=== PATIENT | male | born 1940 | race Caucasian/White ===

== ENCOUNTER 2018-08-24 06:40 | Inpatient (IN) | payer OTHER ==
[~2018-08-24] VITALS: Ht 188 cm; Wt 141.9 kg
[2018-08-24 07:08] LABS: BASOPHILS ABSOLUTE AUTO 0.04 K/mm3 (0.00-0.23); BASOPHILS PERCENT AUTO 0 % (0-2); EOSINOPHILS PERCENT AUTO 0 % (0-6); Hematocrit 35.2 % (37.0-53.0); Hemoglobin 11.1 g/dL (13.5-17.5); IMMATURE GRAN ABSOLUTE AUTO 0.07 K/mm3 (0.00-0.10); IMMATURE GRAN PERCENT AUTO 1 % (0-1); LYMPHOCYTES ABSOLUTE AUTO 1.15 K/mm3 (0.84-5.20); LYMPHOCYTES PERCENT AUTO 9 % (21-46); MONOCYTES PERCENT AUTO 11 % (4-13); Mean Corpuscular HGB 30.7 pg (26.0-34.0); Mean Corpuscular HGB Conc 31.5 g/dL (31.5-36.5); Mean Corpuscular Volume 97 fL (80-100); Mean Platelet Volume 10.2 fL (9.1-12.4); NEUTROPHILS ABSOLUTE AUTO 10.12 K/mm3 (1.96-9.15); NEUTROPHILS PERCENT AUTO 79 % (41-73); Platelet Count 266 K/mm3 (150-400); RDW Coefficient Variation 13.8 % (11.7-14.2); RDW Standard Deviation 50.4 fL (35.1-46.3); Red Blood Cell Count 3.62 M/mm3 (4.30-5.90); White Blood Cell Count 12.78 K/mm3 (4.00-11.30)
[2018-08-24 07:19] LABS: Bun/Creatinine Ratio 21.5 (12.0-20.0); Calcium, Blood 8.5 mg/dL (8.5-10.1); Creatinine, Blood 1.3 mg/dL (0.60-1.20); Potassium, Blood 4.1 mmol/L (3.5-5.5); Troponin I 0.016 ng/mL (0.000-0.040)
[2018-08-24] MEDS ORDERED: Glipizide-Metf1 EAC2 PO (09:01)
[2018-08-24] MEDS ORDERED: ATOR10 PO (09:01)
[2018-08-24] MEDS ORDERED: LEVSOD100 PO (09:01)
[2018-08-24] MEDS ORDERED: FURO40 PO (09:01)
[2018-08-24] MEDS ORDERED: LOSA50 PO (09:01)
[2018-08-24 09:28] LABS: Bilirubin, Urine Neg (Neg); Blood, Urine 4+ (Neg); Glucose Qualitative, Urine Neg (Neg); Ketones, Urine 2+ (Neg); Leukocyte Esterase, Urine 2+ (Neg); Nitrite, Urine Neg (Neg); Protein, Urine 3+ (Neg); Specific Gravity, Urine 1.015 (1.003-1.022); Urobilinogen, Urine NORM (Normal)
[2018-08-24 09:46] LABS: Appearance, Urine Hazy (Clear); Color, Urine Yellow (P-Yellow)
[2018-08-24 09:50] LABS: Bacteria Many /hpf; Squamous Epithelial Cells Few /hpf (Few)
[2018-08-24 13:23] LABS: Albumin, Blood 2.4 g/dL (3.4-5.0); Albumin/Globulin Ratio 0.5 (0.8-1.8); Bilirubin, Total 0.7 mg/dL (0.1-1.0); Calcium, Blood 8.1 mg/dL (8.5-10.1); Creatinine, Blood 1.26 mg/dL (0.60-1.20); Globulin, Blood 4.5 g/dL (2.2-4.0); Potassium, Blood 4.2 mmol/L (3.5-5.5); Total Protein, Blood 6.9 g/dL (6.4-8.2)
[2018-08-24] MEDS ORDERED: METF500C PO (18:18)
[2018-08-25 05:09] LABS: BASOPHILS ABSOLUTE AUTO 0.03 K/mm3 (0.00-0.23); BASOPHILS PERCENT AUTO 0 % (0-2); EOSINOPHILS ABSOLUTE AUTO 0.03 K/mm3 (0.00-0.68); EOSINOPHILS PERCENT AUTO 0 % (0-6); Hematocrit 32.2 % (37.0-53.0); Hemoglobin 10.2 g/dL (13.5-17.5); IMMATURE GRAN ABSOLUTE AUTO 0.06 K/mm3 (0.00-0.10); IMMATURE GRAN PERCENT AUTO 1 % (0-1); LYMPHOCYTES ABSOLUTE AUTO 1.32 K/mm3 (0.84-5.20); LYMPHOCYTES PERCENT AUTO 11 % (21-46); MONOCYTES ABSOLUTE AUTO 1.25 K/mm3 (0.16-1.47); MONOCYTES PERCENT AUTO 10 % (4-13); Mean Corpuscular HGB Conc 31.7 g/dL (31.5-36.5); Mean Corpuscular Volume 95 fL (80-100); Mean Platelet Volume 10.2 fL (9.1-12.4); NEUTROPHILS ABSOLUTE AUTO 9.92 K/mm3 (1.96-9.15); NEUTROPHILS PERCENT AUTO 79 % (41-73); Platelet Count 258 K/mm3 (150-400); RDW Coefficient Variation 13.9 % (11.7-14.2); RDW Standard Deviation 48.5 fL (35.1-46.3); White Blood Cell Count 12.61 K/mm3 (4.00-11.30)
[2018-08-25 05:37] LABS: Magnesium, Blood 1.7 mg/dL (1.6-2.4)
[2018-08-25 05:39] LABS: Albumin, Blood 2.3 g/dL (3.4-5.0); Albumin/Globulin Ratio 0.5 (0.8-1.8); Bilirubin, Total 0.8 mg/dL (0.1-1.0); Calcium, Blood 8.1 mg/dL (8.5-10.1); Creatinine, Blood 1.3 mg/dL (0.60-1.20); Globulin, Blood 4.9 g/dL (2.2-4.0); Phosphorus, Blood 2.1 mg/dL (2.5-4.9); Potassium, Blood 3.9 mmol/L (3.5-5.5); Total Protein, Blood 7.2 g/dL (6.4-8.2)
[2018-08-26 04:57] LABS: Hematocrit 32.2 % (37.0-53.0); Hemoglobin 10.3 g/dL (13.5-17.5); Mean Corpuscular HGB 30.6 pg (26.0-34.0); Mean Corpuscular Volume 96 fL (80-100); Platelet Count 236 K/mm3 (150-400); RDW Coefficient Variation 13.8 % (11.7-14.2); RDW Standard Deviation 48.4 fL (35.1-46.3); Red Blood Cell Count 3.37 M/mm3 (4.30-5.90); White Blood Cell Count 8.71 K/mm3 (4.00-11.30)
[2018-08-26 05:24] LABS: Albumin, Blood 2.2 g/dL (3.4-5.0); Anion Gap 7 mmol/L (6-16); Blood Urea Nitrogen 27 mg/dL (8-24); CO2, Blood 28 mmol/L (21-32); Calcium, Blood 8.1 mg/dL (8.5-10.1); Chloride, Blood 102 mmol/L (98-108); Creatinine, Blood 1.23 mg/dL (0.60-1.20); Glomerular Filtration Rate >60 (60-); Glucose, Blood 117 mg/dL (70-99); Phosphorus, Blood 2.8 mg/dL (2.5-4.9); Potassium, Blood 3.9 mmol/L (3.5-5.5); Sodium, Blood 137 mmol/L (136-145)
[2018-08-27 05:24] LABS: Hematocrit 33.1 % (37.0-53.0); Hemoglobin 10.3 g/dL (13.5-17.5); Mean Corpuscular HGB 30.4 pg (26.0-34.0); Mean Corpuscular HGB Conc 31.1 g/dL (31.5-36.5); Mean Corpuscular Volume 98 fL (80-100); Mean Platelet Volume 10.1 fL (9.1-12.4); Platelet Count 248 K/mm3 (150-400); RDW Coefficient Variation 13.7 % (11.7-14.2); RDW Standard Deviation 49.2 fL (35.1-46.3); Red Blood Cell Count 3.39 M/mm3 (4.30-5.90); White Blood Cell Count 9.27 K/mm3 (4.00-11.30)
[2018-08-27 05:44] LABS: Albumin, Blood 2.1 g/dL (3.4-5.0); Anion Gap 6 mmol/L (6-16); Blood Urea Nitrogen 26 mg/dL (8-24); Bun/Creatinine Ratio 22.6 (12.0-20.0); CO2, Blood 30 mmol/L (21-32); Chloride, Blood 101 mmol/L (98-108); Creatinine, Blood 1.15 mg/dL (0.60-1.20); Glomerular Filtration Rate >60 (60-); Glucose, Blood 119 mg/dL (70-99); Sodium, Blood 137 mmol/L (136-145)
[2018-08-28 04:51] LABS: Hematocrit 32.4 % (37.0-53.0); Hemoglobin 10.1 g/dL (13.5-17.5); Mean Corpuscular HGB 30.7 pg (26.0-34.0); Mean Corpuscular HGB Conc 31.2 g/dL (31.5-36.5); Mean Corpuscular Volume 99 fL (80-100); Mean Platelet Volume 10.1 fL (9.1-12.4); Platelet Count 247 K/mm3 (150-400); RDW Coefficient Variation 13.6 % (11.7-14.2); RDW Standard Deviation 49.3 fL (35.1-46.3); Red Blood Cell Count 3.29 M/mm3 (4.30-5.90)
[2018-08-28 05:07] LABS: Albumin, Blood 2.2 g/dL (3.4-5.0); Anion Gap 7 mmol/L (6-16); Blood Urea Nitrogen 22 mg/dL (8-24); Bun/Creatinine Ratio 17.3 (12.0-20.0); CO2, Blood 29 mmol/L (21-32); Calcium, Blood 8.2 mg/dL (8.5-10.1); Chloride, Blood 101 mmol/L (98-108); Creatinine, Blood 1.27 mg/dL (0.60-1.20); Glomerular Filtration Rate 58 (60-); Glucose, Blood 156 mg/dL (70-99); Sodium, Blood 137 mmol/L (136-145)
[2018-08-28] MEDS ORDERED: Acetaminophen325 M1 PO (14:57)
[2018-08-28] MEDS ORDERED: LEVO750 PO (14:58)
[2018-08-28] MEDS ORDERED: NYSTATIN1 EAC1 TOP (14:58)
[2018-08-28] MEDS ORDERED: ASPI81CH PO (14:59)
[2018-08-28] MEDS ORDERED: SACC250C PO (14:59)
[2018-08-28] MEDS ORDERED: K-TAB ER20 MEQ PO (15:00)
== END 2018-08-28 16:14 | disposition home health service (06) | DRG 689 ==
LOC: ER 06:40 → MEDS 10:31
PROVIDERS: Emergency Medicine; Hospitalist; Internal Medicine
DX: N30.90 Cystitis, unspecified without hematuria (principal); G92 Toxic encephalopathy; Z68.41 Body mass index [BMI] 40.0-44.9, adult; E03.9 Hypothyroidism, unspecified; E66.01 Morbid (severe) obesity due to excess calories; E78.5 Hyperlipidemia, unspecified; J44.9 Chronic obstructive pulmonary disease, unspecified; I12.9 Hypertensive chronic kidney disease with stage 1 through stage 4 chronic kidney disease, or unspecified chronic kidney disease; N18.3 Chronic kidney disease, stage 3 (moderate); E11.22 Type 2 diabetes mellitus with diabetic chronic kidney disease
CPT/HCPCS: 36415; 70450; 71045; 74018; 80048; 80053; 80069; 81001; 82947; 83605; 83735; 84100; 84484; 85025; 85027; 87040; 87077; 87086; 87186; 93005; 93010; 94640; 94760; 96361; 96374; 97116; 97162; 97166; 97530; 97535; 99285-25; G8978; G8979; G8987; G8988; J0692; J0696; J1650; J1940; J1956; J7030; J7050

== ENCOUNTER 2021-03-09 12:15 | Inpatient (IN) | payer MEDICARE ==
[~2021-03-09] VITALS: Ht 188 cm; Wt 140.2 kg
[~2021-03-09 12:15] MED LIST: ATOR10 PO; Acetaminophen325 M1 PO; Aspirin EC81 MG PO; FURO40 PO; Glipizide-Metf1 EAC2 PO; K-TAB ER20 MEQ PO; LEVO750 PO; LEVSOD100 PO; LOSA50 PO; METF500C PO; NYSTATIN1 EAC1 TOP; SACC250C PO
[2021-03-09] MEDS ORDERED: GLIPIZIDE-METF1 EAC1 PO ×2 (12:22→13:36)
[2021-03-09 12:58] LABS: BASOPHILS ABSOLUTE AUTO 0.02 K/mm3 (0.00-0.23); BASOPHILS PERCENT AUTO 0 % (0-2); EOSINOPHILS ABSOLUTE AUTO 0.02 K/mm3 (0.00-0.68); EOSINOPHILS PERCENT AUTO 0 % (0-6); Hematocrit 35.6 % (37.0-53.0); IMMATURE GRAN ABSOLUTE AUTO 0.04 K/mm3 (0.00-0.10); IMMATURE GRAN PERCENT AUTO 0 % (0-1); LYMPHOCYTES ABSOLUTE AUTO 0.65 K/mm3 (0.84-5.20); LYMPHOCYTES PERCENT AUTO 6 % (21-46); MONOCYTES ABSOLUTE AUTO 0.11 K/mm3 (0.16-1.47); MONOCYTES PERCENT AUTO 1 % (4-13); Mean Corpuscular HGB 29.5 pg (26.0-34.0); Mean Corpuscular HGB Conc 30.9 g/dL (31.5-36.5); Mean Corpuscular Volume 95 fL (80-100); Mean Platelet Volume 10.7 fL (9.1-12.4); NEUTROPHILS ABSOLUTE AUTO 9.26 K/mm3 (1.96-9.15); NEUTROPHILS PERCENT AUTO 92 % (41-73); Platelet Count 203 K/mm3 (150-400); RDW Coefficient Variation 14.6 % (11.7-14.2); RDW Standard Deviation 50.4 fL (35.1-46.3); Red Blood Cell Count 3.73 M/mm3 (4.30-5.90)
[2021-03-09 13:09] LABS: Albumin, Blood 3.2 g/dL (3.4-5.0); Albumin/Globulin Ratio 0.7 (0.8-1.8); Bilirubin, Total 0.8 mg/dL (0.1-1.0); Calcium, Blood 8.6 mg/dL (8.5-10.1); Creatinine, Blood 1.69 mg/dL (0.60-1.20); Globulin, Blood 4.3 g/dL (2.2-4.0); Potassium, Blood 3.8 mmol/L (3.5-5.5); Total Protein, Blood 7.5 g/dL (6.4-8.2)
[2021-03-09 13:29] LABS: International Normalized Ratio 1.02
[2021-03-09] MEDS ORDERED: POTASSIUM CHLO20 ME1 PO (13:36)
[2021-03-09] MEDS ORDERED: FURO40 PO (13:37)
[2021-03-09] MEDS ORDERED: FERSU300 PO (13:37)
--- NOTE | 2021-03-09 18:13 | NUR ---
Brief Pt visit this evening. Spoke with hospitalist Ivania and discussed case. Pt deferrs to family for decisions regarding his code status. Spouse is unsure is Intubation would be ok and is deferring to Pt's daughter. Pt resting on gurny upon arrival. Pt's daughter Brigida is at bedside. Engaged in therapeutic discussion regarding code status. Educated on life sustaining measures including risk factors and implications of CPR. Pt confirms he prefers for daughter to make decision. Daughter Brigida reports wishes are to have everything done including CPR and Intubation. Pt and family agreeable for continued supportive visits from Palliative Care. Palliative Care will F/U for supportive visits.
--- NOTE | 2021-03-09 20:00 | NUR ---
ADMIT ASSESSMENT PT ARRIVED FROM ER VIA GURNEY. PT AWAKE AND ANSWERING QUESTIONS. TRANSFERED TO BED BY STAFF WITH SLIDER SHEET. PT ASSISTING WITH TURNING. DENIES PAIN OR DISCOMFORT. PT STATES,"I'M FEELING BETTER NOW THAN WHEN I CAME IN TODAY". LUNGS DECREASED THROUGHOUT ON 4 LITER VIA NC. RESP EVEN AND NONLABORED. PT STATES,"I HAVE A COUGH EVERY ONCE IN AWHILE, BUT NO SOB NOW". HEART RATE REGULAR IN THE 80'S. BP STABLE ON 2 MCQ/MIN LEVOPHED NS AT 200 ML/HR STARTED. BT+ ABD SOFT AND NONTENDER. DENIES N/V. IV 18G TO RIGHT AC WITH NS AT 200 ML/HR AND LEVOPHED AT 2 MCQ/MIN. SITE CLEAR. IV 20G TO LEFT WRIST SALINE LOCKED, FLUSHED WITHOUT DIFFCULTY. SITE CLEAR. PT WITH PEDI BAG ON PENIS FOR UA. PT FOLLOWING INSTRUCTIONS WITHOUT DIFFICUTLY.
[2021-03-09 21:31] LABS: Source, Urine Catheter
[2021-03-09 21:36] LABS: Bilirubin, Urine Neg (Neg); Blood, Urine 4+ (Neg); Glucose Qualitative, Urine Neg (Neg); Ketones, Urine Neg (Neg); Leukocyte Esterase, Urine 2+ (Neg); Nitrite, Urine Neg (Neg); Protein, Urine 2+ (Neg); Specific Gravity, Urine 1.015 (1.003-1.022); Urobilinogen, Urine NORM (Normal)
[2021-03-09 21:41] LABS: Appearance, Urine Hazy (Clear); Color, Urine Yellow (P-Yellow)
[2021-03-09 21:43] LABS: Bacteria Many /hpf; Squamous Epithelial Cells Few /hpf (Few); White Blood Cells, Urine 50-100 /hpf (0-5)
--- NOTE | 2021-03-09 23:21 | NUR ---
SOB ASSISTED PT WITH URINAL. SHARI CARE DONE AND LINEN CHANGED DUE TO MISSING URINAL. PT BECAME VERY SOB WITH TURNING FOR LINEN CHANGE, RESOLVED AFTER 2 MIN OF RESTING QUIETLY. LEVOPHED ON STANDBY DUE TO SBP IN THE 140'S.
--- NOTE | 2021-03-10 00:35 | NUR ---
GIANG PT VOIDING 50-100 ML URINE AT A TIME. MED WITH URO-JET LIDOCAINE JELLY. TRIED TO PLACE 14 FR COUDE CATH BUT UNABLE TO RETRACT FORESKIN AND FIND MEATUS. PT TOLERATED WELL. ATTENDS ON.
--- NOTE | 2021-03-10 01:35 | NUR ---
GIANG PT MED WITH URO-JET LIDOCAINE FOR GIANG CATH PLACEMENT BY KRISTEN ZAMARRIPA RN. PT UNABLE TO REMAIN STILL, TRYING TO CLIMB OUT OF BED. STATES,"I NEED TO PEE". UNABLE TO PLACE GIANG DUE TO UNABLE TO FIND MEATUS. PT CONT RESTLESS.
--- NOTE | 2021-03-10 01:56 | NUR ---
CALL TO MD CALL TO DR BOONE REGARDING INCREASED RESP RATE AND O2 REQUIREMENT. PT ON NRB AT 15 LITERS. VERY RESTLESS AND TRYING TO CLIMB OUT OF BED. RT AT BEDSIDE. RECEIVED ORDER FOR ATIVAN.
--- NOTE | 2021-03-10 02:30 | NUR ---
GIANG/BIPAP/RESTRAINTS AT 0220 ISAURO TORRES RN PLACED 8FR GIANG CATH, YELLOW URINE DRAINING. 022 RT PLACED PT ON BIPAP 12/10 FIO2 50%. CALL OUT TO DR BOONE, HE IS COMING TO EVAL PT. 0230 PT PLACED IN SOFT RESTRAINTS TO PREVENT PT FROM PULLING GIANG CATH OUT. PT RESTLESS AND CONFUSE. NOT FOLLOWING INSTRUCTIONS.
--- NOTE | 2021-03-10 02:40 | NUR ---
AT BEDSIDE DR BOONE AT BEDSIDE. PT CALMER NOW. BIPAP ON. SPO2 UP TO 96%. CXR ORDERED.
[2021-03-10 03:03] LABS: Source, Urine Catheter
[2021-03-10 03:05] LABS: Bilirubin, Urine Neg (Neg); Blood, Urine 5+ (Neg); Glucose Qualitative, Urine Neg (Neg); Ketones, Urine Neg (Neg); Leukocyte Esterase, Urine 2+ (Neg); Nitrite, Urine Neg (Neg); Protein, Urine 2+ (Neg); Specific Gravity, Urine 1.015 (1.003-1.022); Urobilinogen, Urine NORM (Normal)
[2021-03-10 03:11] LABS: Amorphous Mod (0-Heavy); Appearance, Urine Hazy (Clear); Bacteria Mod /hpf; Color, Urine Yellow (P-Yellow); Red Blood Cells, Urine TNTC /hpf (0-2); Squamous Epithelial Cells Rare /hpf (Few)
[2021-03-10 03:31] LABS: Hematocrit 31.6 % (37.0-53.0); Hemoglobin 10.2 g/dL (13.5-17.5); Mean Corpuscular HGB 30.7 pg (26.0-34.0); Mean Corpuscular HGB Conc 32.3 g/dL (31.5-36.5); Mean Corpuscular Volume 95 fL (80-100); Mean Platelet Volume 10.5 fL (9.1-12.4); Platelet Count 167 K/mm3 (150-400); RDW Coefficient Variation 14.9 % (11.7-14.2); RDW Standard Deviation 51.4 fL (35.1-46.3); Red Blood Cell Count 3.32 M/mm3 (4.30-5.90); White Blood Cell Count 21.67 K/mm3 (4.00-11.30)
[2021-03-10 03:48] LABS: Bun/Creatinine Ratio 14.4 (12.0-20.0); Calcium, Blood 7.5 mg/dL (8.5-10.1); Creatinine, Blood 1.95 mg/dL (0.60-1.20); Potassium, Blood 5.2 mmol/L (3.5-5.5)
[2021-03-10 03:55] LABS: BAND PERCENT MAN 35 % (0-8); BASOPHILS PERCENT MAN 0 % (0-2); EOSINOPHILS PERCENT MAN 0 % (0-6); LYMPHOCYTES ABSOLUTE MAN 0.21 K/mm3 (0.84-5.20); LYMPHOCYTES PERCENT MAN 1 % (21-46); MONOCYTES ABSOLUTE MAN 0.43 K/mm3 (0.16-1.47); MONOCYTES PERCENT MAN 2 % (4-13); MYELOCYTE ABSOLUTE MAN 0.21 K/mm3 (0.00-0.00); MYELOCYTE PERCENT MAN 1 % (0-0); SEG NEUTROPHILS PERCENT MAN 61 % (41-73); TOTAL CELLS COUNTED 100
--- NOTE | 2021-03-10 03:55 | NUR ---
CALL TO MD CALL TO DR BOONE REGARDING INCREASED AGITATION. ORDER RECEIVED FOR HALDOL. ALSO TALKED WITH MD REGARDING IV FLUID, CHANGED TO TKO.
--- NOTE | 2021-03-10 06:07 | NUR ---
SHIFT SUMMARY PT RESTING QUIETLY WITH BIPAP ON. PT WAS ADMITTED LAST NIGHT WAS A&O BUT BECAME CONFUSE AND AGITATED DURING THE NIGHT. O2 REQUIREMENTS INCREASED FROM 4 LITERS VIA NC TO BIPAP 18/10 FIO2 50%. PT PLACED IN RESTRAINTS DUE TO CONFUSION AND PULLING AT LINES. PT IS NOW WAKING UP AND ASKING,"WHAT HAPPEN". EXPLAINED WHAT HAPPEN DURING THE NIGHT AND PT STATES,"I DON'T REMEMBER ANY OF IT. I'M SO SORRY". RESTRAINTS REMOVED AND PT PLACED ON REMOTE MONITORING FOR FALL RISK AND FOR PULLING LINES. PT IS TOLERATING BIPAP AT THIS TIME. DIFFICULT GIANG CATH 8 FR PLACED AFTER MULTIPLE ATTEMPTS. PT WEANED OFF LEVOPHED. NS AT 200 ML/HR CHANGED TO TKO DUE TO CRACKLES IN THE LUNGS WHEN PT WENT ON BIPAP. NOW LUNGS JUST DECREASED. REPORT TO ON COMING NURSE
--- NOTE | 2021-03-10 08:20 | NUR ---
CARE ASSUMED ASSESSMENTS COMPLETED. PT AWAKE, ALERT AND ORIENTED, FORGETFUL ABOUT SOME EVENTS DURING CURRENT ILLNESS, OTHERWISE APPROPRIATE AND COOPERATIVE. BIPAP 12/10, FIO2 40%, SPO2 MID 90'S. BIPAP REMOVED, NC PLACED AT 4L/NC, SPO2 NOW 93%. LS DIMINISHED T/O AND COARSE IN RLL, LOOSE COUGH NOTED, UNABLE TO VISUALIZE SPUTUM AT THIS TIME. PT DENIES SOB, RR 28. HR 80'S SINUS, BP SOFT, LEVO REMAINS OFF, WILL RESUME NECESSARY TO KEEP MAP >60. 8F GIANG IN PLACE, PATENT AND DRAINING DARK YELLOW CLOUDY URINE, PT REPORTS PENIS IS SORE FROM DIFFICULT INSERTION, DENIES NEED FOR PAIN MEDS. NO OBVOIUS BLOOD NOTED IN URINE. ABD SOFT, NONTENDER, BT PRESENT. SKIN GROSSLY INTACT, LE'S WITH BROWN SPOTTED DISCOLORATION IN PVD, NO EDEMA NOTED. PT REPORTS CHRONIC NEUROPATHY IN LE'S. RENAL US COMPLETED, PT REPOSITIONED IN BED, EATING BREAKFAST.
--- NOTE | 2021-03-10 10:22 | NUR ---
ADMIT: 03/09/21 DX: Severe Sepsis CC: Madhavi Workman RESIDENCE: Home - [address] [place] [address] [place]. [id number] CAREGIVER: Billie, Spouse / Partner, Update 03/10/21: Restraints needed due to pt. confusion pulling at lines and risk for falls. Confusion thought to be secondary to septic encephalopathy. Placed on pt. at 0230 this am. Restraints removed 03/10/21 at 0530. Per nursing notes, pt. following instructions at that time.
--- NOTE | 2021-03-10 11:23 | NUR ---
UPDATE PHYSICAL THERAPAST IN, PT ASSISTED TO CHAIR WITH GAIT BELT AND WALKER, GAIT SLOW BUT STEADY WITH ASSIST, SPO2 93-96% ON 4L/NC T/O TRANSFER. PT REMAINS TACHYPNEIC WITH RR 24-30, PT DENIES SOB. PT SAT UP IN CHAIR FOR ABOUT AN HOUR, WAS THEN ASSISTED BACK TO BED AFTER REFUSING TO STAY IN CHAIR UNTIL LUNCH, DENIES DIZZINESS WITH TRANSFER. DR. CARRINGTON IN TO ASSESS, NEW ORDERS FOR MEDICAL STATUS WITHOUT TELE.
--- NOTE | 2021-03-10 18:28 | NUR ---
END OF SHIFT PT SLEPT MOST OF AFTERNOON, WAKES EASILY, DENIES SOB, STATES URETHRAL PAIN IS MINIMAL. SMALL AMOUNT OF BLOOD OOZING FROM MEATUS. LS REMAIN DIM, O2 4L/NC WITH SPO2 >90%, OCCASIONAL LOOSE COUGH, PT UNABLE TO PROVIDE SPUTUM SAMPLE TODAY. VSS, BEDBATH GIVEN, PT TOLERATED MEALS WITHOUT DIFFICULTY.
--- NOTE | 2021-03-10 20:16 | NUR ---
Patient arrived to room 361 from ICU. No complaints of pain or discomfort, vasquez draining clear marcos urine. Skin appears intact, and patient is alert times 2-3 pleasant and cooperative with care. Alarms set on bed and bed locked and in low position.
--- NOTE | 2021-03-11 06:16 | NUR ---
SLEPT WELL EXCEPT WAKING AND CALLING TO USE THE BATHROOM TO URINATE 2-3 TIMES OVERNIGHT. NO COMPLAINTS OF PAIN OR DISCOMFORT. CURRENTLY ON 4 LITERS NASAL CANNULA . (ON 5 LITERS AT HOME
[2021-03-11 11:36] LABS: Hematocrit 33.1 % (37.0-53.0); Hemoglobin 10.4 g/dL (13.5-17.5); Mean Corpuscular HGB Conc 31.4 g/dL (31.5-36.5); Mean Corpuscular Volume 95 fL (80-100); Mean Platelet Volume 10.9 fL (9.1-12.4); Platelet Count 168 K/mm3 (150-400); RDW Standard Deviation 52.6 fL (35.1-46.3); Red Blood Cell Count 3.47 M/mm3 (4.30-5.90); White Blood Cell Count 15.95 K/mm3 (4.00-11.30)
[2021-03-11 12:06] LABS: Albumin, Blood 2.8 g/dL (3.4-5.0); Albumin/Globulin Ratio 0.7 (0.8-1.8); Bilirubin, Total 0.6 mg/dL (0.1-1.0); Bun/Creatinine Ratio 16.8 (12.0-20.0); Calcium, Blood 8.3 mg/dL (8.5-10.1); Creatinine, Blood 1.43 mg/dL (0.60-1.20); Globulin, Blood 4.3 g/dL (2.2-4.0); Potassium, Blood 4.2 mmol/L (3.5-5.5); Total Protein, Blood 7.1 g/dL (6.4-8.2)
[2021-03-11 12:40] LABS: BAND PERCENT MAN 9 % (0-8); BASOPHILS ABSOLUTE MAN 0.47 K/mm3 (0.00-0.23); BASOPHILS PERCENT MAN 3 % (0-2); EOSINOPHILS ABSOLUTE MAN 0.15 K/mm3 (0.00-0.68); EOSINOPHILS PERCENT MAN 1 % (0-6); LYMPHOCYTES ABSOLUTE MAN 2.07 K/mm3 (0.84-5.20); LYMPHOCYTES PERCENT MAN 13 % (21-46); MONOCYTES ABSOLUTE MAN 0.63 K/mm3 (0.16-1.47); MONOCYTES PERCENT MAN 4 % (4-13); SEG NEUTROPHILS PERCENT MAN 70 % (41-73); TOTAL CELLS COUNTED 100
--- NOTE | 2021-03-11 13:30 | NUR ---
PT STATED WANTING TO LEAVE AMA; PT EDUCATED ABOUT THE NEEDING TO STAY ONE MORE DAY PER . PT FRUSTRATED AND STATED "THEY DID NOT FIX ME; SO I DONT WANT TO BE HERE AT THE HOSPITAL." PT ANGRY ABOUT THE FACT THAT HE IS NOT HAVING SURGERY DUE TO PROBLEM THAT WAS CAUSED AFTER HE HAD A CIRCUMSICION YEARS AGO. DC'D GIANG PER ; PT USING URINAL WITHOUT PROBLEM. CALLED TO TALK LET HER KNOW ABOUT THE PT SITUATION AND WANTING TO GO HOME; DOES NOT AGREE OF HIM GOING HOME. CALLED DR AND INFORMED ABOUT PT CONCERN; AND DR CALLED . AND DTR WILL BE COMING IN TODAY. PT REFUSED LASIX AND STATED "I AM NOT TAKING ANY MEDICATIONS, I AM SO ANGRY"
--- NOTE | 2021-03-11 16:57 | NUR ---
SHIFT SUMMARY PT CONFUSED AT TIMES. WANTING TO LEAVE THIS AM, BUT CALMS HIM DOWN. DENIES PAIN. SOB ON EXERTION. PT WONT KEEP THE OXYGEN ON- CONSTANT REMINDER NEEDED, ON 3-4 L BASELINE. PT DTR MIGHT COME TONIGHT OR TOMORROW MORNING; PT SEEMS CALMER-SEE PREVIOUS NOTE. PT WORKED WITH PHYSICAL THERAPIST TODAY. WILL LIKELY BE DISCHARGE TOMORROW. PADMAJA RODRIGUEZ. URINATING OKAY USES URINAL AND BATHROOM. BED IS IN THE LOWEST POSITION AND CALL LIGHT WITHIN REACH
--- NOTE | 2021-03-12 03:37 | NUR ---
BEE WAS RATHER SLEEPLESS OVERNIGHT. GETTING OOB FREQUENTLY TO URINATE SETTING OFF ALARMS. MULTIPLE INCONTINENT VOIDS WITH VERY FOUL ODOR. PATIENT NEVER ATTEMPTED TO LEAVE FLOOR OR DISCUSS GOING AMA. TRIED 3MG HALDOL, WHICH DID SLOW THE PATIENT DOWN FOR APPROXIMATELY 1.5 TO 2 HOURS, BUT MADE HIM EVEN MORE UNSTEADY
--- NOTE | 2021-03-12 09:30 | NUR ---
NO IV ACCESS; NOT PATENT; PT REFUSED FOR ANOTHER IV ACCESS CALLED THE DR AND ASK FOR PO ABX; PT WILL BE DISCHARGE TODAY NO FURTHER ORDERS NEEDED.
[2021-03-12] MEDS ORDERED: CEFD300 PO (13:53)
--- NOTE | 2021-03-12 14:42 | NUR ---
PT DISCHARGED TO HOME VIA WC; IV DC'D THIS AM; NO GIANG. PT GIVEN PACKETS WITH INSTRUCTIONS AND MED LIST. MEDICATION FAXED TO [facility]. PT EDUCATED ABOUT THE FOLLOW UP APPOINTMENT TO PCP WITHIN 2 WEEKS IN [place]. PT AND AWARE. NO SIGNS OF DISTRESS AND NO COMPLAINS.
== END 2021-03-12 14:41 | disposition home health service (06) | DRG 871 ==
LOC: ER 12:15 → ICUW 17:45 → ICUE 17:45 → MEDS 03-10 19:53
PROVIDERS: Emergency Medicine; Internal Medicine; Nurse Practitioner Acute Care; ADMIT Hospitalist
PROC: 3E033XZ Introduction of Vasopressor into Peripheral Vein, Percutaneous Approach (ICD-10-PCS; principal; 2021-03-09)
DX: A40.8 Other streptococcal sepsis (principal); G93.41 Metabolic encephalopathy; N39.0 Urinary tract infection, site not specified; E87.2 Acidosis; J96.11 Chronic respiratory failure with hypoxia; J44.9 Chronic obstructive pulmonary disease, unspecified; E11.40 Type 2 diabetes mellitus with diabetic neuropathy, unspecified; E78.5 Hyperlipidemia, unspecified; N18.30 Chronic kidney disease, stage 3 unspecified; E11.22 Type 2 diabetes mellitus with diabetic chronic kidney disease; I12.9 Hypertensive chronic kidney disease with stage 1 through stage 4 chronic kidney disease, or unspecified chronic kidney disease; N47.1 Phimosis; R65.20 Severe sepsis without septic shock; F03.90 Unspecified dementia, unspecified severity, without behavioral disturbance, psychotic disturbance, mood disturbance, and anxiety; E66.01 Morbid (severe) obesity due to excess calories; D50.9 Iron deficiency anemia, unspecified; Z79.82 Long term (current) use of aspirin; Z79.84 Long term (current) use of oral hypoglycemic drugs; Z79.899 Other long term (current) drug therapy; Z98.890 Other specified postprocedural states; Z98.41 Cataract extraction status, right eye; Z98.42 Cataract extraction status, left eye; Z99.81 Dependence on supplemental oxygen
CPT/HCPCS: 36415; 51703; 51798; 71045; 76770; 80048; 80053; 81001; 82947; 83605; 83880; 84484; 85025; 85610; 85730; 87040; 87086; 93005; 93010; 94660; 94760; 96361; 96365; 96366; 97110; 97116; 97162; 97530; 99285-25; A9270; J0696; J1630; J1650; J2060; J7030; J7060

== ENCOUNTER 2021-05-22 10:36 | Emergency (ER) | payer MEDICARE ==
[~2021-05-22] VITALS: Ht 188 cm; Wt 140.6 kg
[~2021-05-22 10:36] MED LIST changes: +CEFD300 PO; +FERSU300 PO; +GLIPIZIDE-METF1 EAC1 PO; +POTASSIUM CHLO20 ME1 PO
[2021-05-22 11:48] LABS: BASOPHILS ABSOLUTE AUTO 0.04 K/mm3 (0.00-0.23); BASOPHILS PERCENT AUTO 0 % (0-2); EOSINOPHILS ABSOLUTE AUTO 0.07 K/mm3 (0.00-0.68); EOSINOPHILS PERCENT AUTO 1 % (0-6); Hematocrit 32.9 % (37.0-53.0); Hemoglobin 10.8 g/dL (13.5-17.5); IMMATURE GRAN ABSOLUTE AUTO 0.02 K/mm3 (0.00-0.10); IMMATURE GRAN PERCENT AUTO 0 % (0-1); LYMPHOCYTES ABSOLUTE AUTO 2.37 K/mm3 (0.84-5.20); LYMPHOCYTES PERCENT AUTO 23 % (21-46); MONOCYTES ABSOLUTE AUTO 0.89 K/mm3 (0.16-1.47); MONOCYTES PERCENT AUTO 9 % (4-13); Mean Corpuscular HGB 30.1 pg (26.0-34.0); Mean Corpuscular HGB Conc 32.8 g/dL (31.5-36.5); Mean Corpuscular Volume 92 fL (80-100); Mean Platelet Volume 10.3 fL (9.1-12.4); NEUTROPHILS ABSOLUTE AUTO 6.92 K/mm3 (1.96-9.15); NEUTROPHILS PERCENT AUTO 67 % (41-73); Platelet Count 203 K/mm3 (150-400); RDW Coefficient Variation 14.2 % (11.7-14.2); RDW Standard Deviation 47.7 fL (35.1-46.3); Red Blood Cell Count 3.59 M/mm3 (4.30-5.90); White Blood Cell Count 10.31 K/mm3 (4.00-11.30)
[2021-05-22 12:04] LABS: Albumin, Blood 3.3 g/dL (3.4-5.0); Albumin/Globulin Ratio 0.8 (0.8-1.8); Calcium, Blood 10.6 mg/dL (8.5-10.1); Creatinine, Blood 1.67 mg/dL (0.60-1.20); Globulin, Blood 4.4 g/dL (2.2-4.0); Potassium, Blood 3.4 mmol/L (3.5-5.5); Total Protein, Blood 7.7 g/dL (6.4-8.2)
[2021-05-22 13:46] LABS: SARS-Cov-2 (COVID-19) PCR, MMC NEGATIVE (NEGATIVE)
== END 2021-05-22 16:18 | disposition home or self-care (01) ==
LOC: ER 10:36
PROVIDERS: Emergency Medicine
DX: N17.9 Acute kidney failure, unspecified (principal); J44.9 Chronic obstructive pulmonary disease, unspecified; Z20.822 Contact with and (suspected) exposure to COVID-19; Z87.891 Personal history of nicotine dependence; Z79.899 Other long term (current) drug therapy; Z79.82 Long term (current) use of aspirin; Z79.84 Long term (current) use of oral hypoglycemic drugs
CPT/HCPCS: 71045; 80053; 83735; 83880; 85025; 93005; 93010; 99284-25; J7030; U0004

== ENCOUNTER 2021-06-04 08:53 | Emergency (ER) | payer MEDICARE ==
[~2021-06-04] VITALS: Ht 188 cm; Wt 139.7 kg
[2021-06-04] MEDS ORDERED: TAMSULOSIN HCL0.4 M1 PO (09:12)
[2021-06-04 10:13] LABS: BASOPHILS ABSOLUTE AUTO 0.04 K/mm3 (0.00-0.23); BASOPHILS PERCENT AUTO 0 % (0-2); EOSINOPHILS ABSOLUTE AUTO 0.03 K/mm3 (0.00-0.68); EOSINOPHILS PERCENT AUTO 0 % (0-6); Hematocrit 35.3 % (37.0-53.0); Hemoglobin 11.2 g/dL (13.5-17.5); IMMATURE GRAN ABSOLUTE AUTO 0.03 K/mm3 (0.00-0.10); IMMATURE GRAN PERCENT AUTO 0 % (0-1); LYMPHOCYTES ABSOLUTE AUTO 1.61 K/mm3 (0.84-5.20); LYMPHOCYTES PERCENT AUTO 14 % (21-46); MONOCYTES ABSOLUTE AUTO 0.71 K/mm3 (0.16-1.47); MONOCYTES PERCENT AUTO 6 % (4-13); Mean Corpuscular HGB 29.6 pg (26.0-34.0); Mean Corpuscular HGB Conc 31.7 g/dL (31.5-36.5); Mean Corpuscular Volume 93 fL (80-100); Mean Platelet Volume 10.7 fL (9.1-12.4); NEUTROPHILS ABSOLUTE AUTO 9.08 K/mm3 (1.96-9.15); NEUTROPHILS PERCENT AUTO 79 % (41-73); Platelet Count 212 K/mm3 (150-400); RDW Coefficient Variation 13.9 % (11.7-14.2); RDW Standard Deviation 47.8 fL (35.1-46.3); Red Blood Cell Count 3.78 M/mm3 (4.30-5.90)
[2021-06-04 10:31] LABS: Bun/Creatinine Ratio 15.5 (12.0-20.0); Calcium, Blood 12.9 mg/dL (8.5-10.1); Creatinine, Blood 1.93 mg/dL (0.60-1.20); Potassium, Blood 3.8 mmol/L (3.5-5.5)
[2021-06-04 10:46] LABS: Source, Urine Catheter
[2021-06-04 10:53] LABS: Appearance, Urine Hazy (Clear); Bilirubin, Urine Neg (Neg); Blood, Urine 5+ (Neg); Color, Urine Yellow (P-Yellow); Glucose Qualitative, Urine Neg (Neg); Ketones, Urine Neg (Neg); Leukocyte Esterase, Urine Neg (Neg); Nitrite, Urine Neg (Neg); Protein, Urine 2+ (Neg); Urobilinogen, Urine NORM (Normal)
[2021-06-04 11:14] LABS: Bacteria Rare /hpf; Red Blood Cells, Urine TNTC /hpf (0-2); Squamous Epithelial Cells Rare /hpf (Few); White Blood Cells, Urine 0-2 /hpf (0-5)
== END 2021-06-04 15:27 | disposition home or self-care (01) ==
LOC: ER 08:53
PROVIDERS: Student in an Organized Health Care Education/Training Program
DX: R53.1 Weakness (principal); R30.0 Dysuria; I12.9 Hypertensive chronic kidney disease with stage 1 through stage 4 chronic kidney disease, or unspecified chronic kidney disease; E11.22 Type 2 diabetes mellitus with diabetic chronic kidney disease; N18.30 Chronic kidney disease, stage 3 unspecified; D63.1 Anemia in chronic kidney disease; J96.11 Chronic respiratory failure with hypoxia; J44.9 Chronic obstructive pulmonary disease, unspecified; Z79.899 Other long term (current) drug therapy; Z79.82 Long term (current) use of aspirin; Z79.84 Long term (current) use of oral hypoglycemic drugs; Z87.891 Personal history of nicotine dependence; Z99.81 Dependence on supplemental oxygen; W18.30XA Fall on same level, unspecified, initial encounter
CPT/HCPCS: 36415; 51701; 51798; 70450; 80048; 81001; 85025; 93005; 93010; 96360; 96361; 99285-25; J7030

== ENCOUNTER 2021-06-16 02:33 | Inpatient (IN) | payer MEDICARE ==
[~2021-06-16] VITALS: Ht 188 cm; Wt 113.4 kg
[~2021-06-16 02:33] MED LIST changes: +TAMSULOSIN HCL0.4 M1 PO
[2021-06-16 03:08] LABS: BASOPHILS ABSOLUTE AUTO 0.04 K/mm3 (0.00-0.23); BASOPHILS PERCENT AUTO 1 % (0-2); EOSINOPHILS ABSOLUTE AUTO 0.21 K/mm3 (0.00-0.68); EOSINOPHILS PERCENT AUTO 3 % (0-6); Hematocrit 35.4 % (37.0-53.0); Hemoglobin 11.4 g/dL (13.5-17.5); IMMATURE GRAN ABSOLUTE AUTO 0.02 K/mm3 (0.00-0.10); IMMATURE GRAN PERCENT AUTO 0 % (0-1); LYMPHOCYTES ABSOLUTE AUTO 2.09 K/mm3 (0.84-5.20); LYMPHOCYTES PERCENT AUTO 28 % (21-46); MONOCYTES ABSOLUTE AUTO 0.79 K/mm3 (0.16-1.47); MONOCYTES PERCENT AUTO 11 % (4-13); Mean Corpuscular HGB Conc 32.2 g/dL (31.5-36.5); Mean Corpuscular Volume 93 fL (80-100); Mean Platelet Volume 10.5 fL (9.1-12.4); NEUTROPHILS ABSOLUTE AUTO 4.34 K/mm3 (1.96-9.15); NEUTROPHILS PERCENT AUTO 58 % (41-73); Platelet Count 210 K/mm3 (150-400); RDW Coefficient Variation 13.9 % (11.7-14.2); RDW Standard Deviation 47.2 fL (35.1-46.3); White Blood Cell Count 7.49 K/mm3 (4.00-11.30)
[2021-06-16 03:26] LABS: Bun/Creatinine Ratio 12.2 (12.0-20.0); Calcium, Blood 13.5 mg/dL (8.5-10.1); Creatinine, Blood 2.22 mg/dL (0.60-1.20); Potassium, Blood 3.4 mmol/L (3.5-5.5)
[2021-06-16 04:00] LABS: Source, Urine Catheter
[2021-06-16 04:03] LABS: Appearance, Urine Clear (Clear); Bilirubin, Urine Neg (Neg); Blood, Urine 1+ (Neg); Color, Urine Yellow (P-Yellow); Glucose Qualitative, Urine Neg (Neg); Ketones, Urine Neg (Neg); Leukocyte Esterase, Urine 1+ (Neg); Nitrite, Urine Neg (Neg); Protein, Urine 1+ (Neg); Specific Gravity, Urine 1.025 (1.003-1.022); Urobilinogen, Urine NORM (Normal)
[2021-06-16 04:10] LABS: Bacteria Many /hpf; Hyaline Casts 0-2 /lpf (0-2); Red Blood Cells, Urine 0-2 /hpf (0-2); Squamous Epithelial Cells Few /hpf (Few)
[2021-06-16 06:57] LABS: SARS-Cov-2 (COVID-19) PCR, MMC NEGATIVE (NEGATIVE)
--- NOTE | 2021-06-16 07:05 | NUR ---
PT NEW ADMIT FROM ER. ARRIVED TO FLOOR AT 0637. A/O X1-2. INTRODUCED TO ROOM AND STAFF. PT CAME UP TO FLOOR ON 1.5L VIA IA SATTING IN THE MID 90'S. REPORT GIVEN TO ONCOMING RN. BED ALARM ON.
--- NOTE | 2021-06-16 17:45 | NUR ---
a+o but slow to respond and forgetful, had to be persuaded to particapat with therapy, stated concern for her ability to care for pt r/his weight and her health, states she is unable to lift him from the floor if he were to fall again
--- NOTE | 2021-06-17 04:38 | NUR ---
CRYSTALLOGRAPHY TEACHER SUMMARY ADMITTED FOR ACUTE METABOLIC ENCEPHALOPATHY. PT IS A DNR. PLAN FOR DISCHARGE HOME WHEN PT ABLE TO AMBULATE WITHOUT DIFFICULTY. PT HAS BEEN PLEASANTLY CONFUSED THROUGHOUT THE SHIFT AND REPORTS THAT HE WOKE UP "LOST". PT WITH SHORT MEMORY AND NEEDING CONSTANT DIRECTION. PT UNABLE TO GET BALANCE WITH TWO PERSON ASSIST AND INSTEAD PUT ON BEDREST THROUGHOUT THE NIGHT.
[2021-06-17 05:23] LABS: BASOPHILS ABSOLUTE AUTO 0.05 K/mm3 (0.00-0.23); BASOPHILS PERCENT AUTO 1 % (0-2); EOSINOPHILS ABSOLUTE AUTO 0.15 K/mm3 (0.00-0.68); EOSINOPHILS PERCENT AUTO 2 % (0-6); Hematocrit 34.6 % (37.0-53.0); Hemoglobin 11.2 g/dL (13.5-17.5); IMMATURE GRAN ABSOLUTE AUTO 0.02 K/mm3 (0.00-0.10); IMMATURE GRAN PERCENT AUTO 0 % (0-1); LYMPHOCYTES ABSOLUTE AUTO 1.99 K/mm3 (0.84-5.20); LYMPHOCYTES PERCENT AUTO 28 % (21-46); MONOCYTES ABSOLUTE AUTO 0.78 K/mm3 (0.16-1.47); MONOCYTES PERCENT AUTO 11 % (4-13); Mean Corpuscular HGB 29.8 pg (26.0-34.0); Mean Corpuscular HGB Conc 32.4 g/dL (31.5-36.5); Mean Corpuscular Volume 92 fL (80-100); Mean Platelet Volume 11.3 fL (9.1-12.4); NEUTROPHILS ABSOLUTE AUTO 4.24 K/mm3 (1.96-9.15); NEUTROPHILS PERCENT AUTO 59 % (41-73); Platelet Count 200 K/mm3 (150-400); RDW Coefficient Variation 13.7 % (11.7-14.2); RDW Standard Deviation 46.4 fL (35.1-46.3); Red Blood Cell Count 3.76 M/mm3 (4.30-5.90); White Blood Cell Count 7.23 K/mm3 (4.00-11.30)
[2021-06-17 05:46] LABS: Bun/Creatinine Ratio 11.7 (12.0-20.0); Calcium, Blood 12.1 mg/dL (8.5-10.1); Creatinine, Blood 2.05 mg/dL (0.60-1.20); Potassium, Blood 3.2 mmol/L (3.5-5.5)
--- NOTE | 2021-06-17 16:36 | NUR ---
SHIFT SUMMARY PATIENT DENIES PAIN, NAUSEA, AND SHORTNESS OF BREATH. PATIENT IS A 2 PERSON TO A BEDSIDE COMMODE. PATIENT IS MOSTLY CONTINENT WITH A URINAL. PATIENT IS PLEASANTLY CONFUSED. PATIENT REFUSED BREAKFAST, BUT ATE LUNCH AND DINNER WELL. IV POTASSIUM GIVEN THIS SHIFT. PATIENT IS VERY FORGETFUL, BUT EASILY REDIRECTED. PT WORKED WITH PATIENT TODAY. PATIENT WAS NOT MOTIVATED TO DO EXERCISES.
--- NOTE | 2021-06-17 19:20 | NUR ---
ASSISTEDTO BED FROM BEDSIDE RECLINER. BEDALARMON.O2 AT 2L/MIN PER NC. CALL LIGHTIN REACH
--- NOTE | 2021-06-18 03:31 | NUR ---
BARN HAND SUMMARY WAS ASSISTED TO BED AT HS, VERY UNSTEADY ON FEET. PT REMOVED O2 NC AND TELE PATCHES A FEW TIMES. WAS REDIRECTED AND SAID ITEMS WERE RE APPLIED. INTERMITTENT REDIRECTION AND ASSISTANCE BACK INTO BED FOR SAFETY AND REST. SOME VOICED IRRITATION. REMAINS ON CAMERA AND CALL LIGHT IN REACH. WILLCONTINUE TO MONITOR
[2021-06-18 13:29] LABS: BASOPHILS ABSOLUTE AUTO 0.06 K/mm3 (0.00-0.23); BASOPHILS PERCENT AUTO 1 % (0-2); EOSINOPHILS ABSOLUTE AUTO 0.11 K/mm3 (0.00-0.68); EOSINOPHILS PERCENT AUTO 1 % (0-6); Hematocrit 37.6 % (37.0-53.0); Hemoglobin 12.5 g/dL (13.5-17.5); IMMATURE GRAN ABSOLUTE AUTO 0.03 K/mm3 (0.00-0.10); IMMATURE GRAN PERCENT AUTO 0 % (0-1); LYMPHOCYTES ABSOLUTE AUTO 1.58 K/mm3 (0.84-5.20); LYMPHOCYTES PERCENT AUTO 19 % (21-46); MONOCYTES PERCENT AUTO 8 % (4-13); Mean Corpuscular HGB 30.5 pg (26.0-34.0); Mean Corpuscular HGB Conc 33.2 g/dL (31.5-36.5); Mean Corpuscular Volume 92 fL (80-100); Mean Platelet Volume 10.9 fL (9.1-12.4); NEUTROPHILS ABSOLUTE AUTO 5.85 K/mm3 (1.96-9.15); NEUTROPHILS PERCENT AUTO 70 % (41-73); Platelet Count 232 K/mm3 (150-400); RDW Coefficient Variation 13.7 % (11.7-14.2); RDW Standard Deviation 46.4 fL (35.1-46.3); White Blood Cell Count 8.33 K/mm3 (4.00-11.30)
[2021-06-18 13:41] LABS: Albumin, Blood 3.4 g/dL (3.4-5.0); Anion Gap 6 mmol/L (6-16); Blood Urea Nitrogen 23 mg/dL (8-24); Bun/Creatinine Ratio 11.5 (12.0-20.0); CO2, Blood 29 mmol/L (21-32); Calcium, Blood 12.4 mg/dL (8.5-10.1); Chloride, Blood 104 mmol/L (98-108); Glomerular Filtration Rate 32 (60-); Glucose, Blood 162 mg/dL (70-99); Magnesium, Blood 1.6 mg/dL (1.6-2.4); Phosphorus, Blood 2.5 mg/dL (2.5-4.9); Potassium, Blood 3.5 mmol/L (3.5-5.5); Sodium, Blood 139 mmol/L (136-145)
--- NOTE | 2021-06-18 16:16 | NUR ---
SHIFT SUMMARY PATIENT DENIES PAIN, NAUSEA, AND SHORTNESS OF BREATH. PATIENT VERY CONFUSED THIS MORNING. PATIENT REFUSED ALL CARE AND TOLD STAFF NOT TO TOUCH HIM OR TALK TO HIM. PATIENT PLEASANT AND CALM IN AFTERNOON. NEW IV PLACED. PATIENT EATING AND DRINKING WELL. PATIENT IS A 2 PERSON MAX ASSIST TO BEDSIDE COMMODE. PATIENT NOT MOTIVATED TO GET OUT OF BED, REFUSED MULTIPLE ATTEMPTS.
--- NOTE | 2021-06-19 05:04 | NUR ---
RECEIVED PATIENT IN BED ALERT BUT CONFUSED. HE DENIES ANY DISCOMFORT. RESP UNLABORED. SAFETY AND COMFORT MEASURES MAINTAINED. ASSISTED WITH ADLS. PATIENT ATTEMPTED TO GET OUT OF BED AT TIMES BUT COMPLIED WITH REDIRECTIONS. BED ALARM EXIT ON. SR WITH PVCS ON TELE. WILL CONTINUE TO MONITOR.
[2021-06-19 08:00] LABS: BASOPHILS ABSOLUTE AUTO 0.05 K/mm3 (0.00-0.23); BASOPHILS PERCENT AUTO 1 % (0-2); EOSINOPHILS ABSOLUTE AUTO 0.24 K/mm3 (0.00-0.68); EOSINOPHILS PERCENT AUTO 3 % (0-6); Hematocrit 36.5 % (37.0-53.0); Hemoglobin 11.6 g/dL (13.5-17.5); IMMATURE GRAN ABSOLUTE AUTO 0.02 K/mm3 (0.00-0.10); IMMATURE GRAN PERCENT AUTO 0 % (0-1); LYMPHOCYTES ABSOLUTE AUTO 1.64 K/mm3 (0.84-5.20); LYMPHOCYTES PERCENT AUTO 23 % (21-46); MONOCYTES PERCENT AUTO 11 % (4-13); Mean Corpuscular HGB 29.4 pg (26.0-34.0); Mean Corpuscular HGB Conc 31.8 g/dL (31.5-36.5); Mean Corpuscular Volume 93 fL (80-100); NEUTROPHILS ABSOLUTE AUTO 4.45 K/mm3 (1.96-9.15); NEUTROPHILS PERCENT AUTO 62 % (41-73); Platelet Count 212 K/mm3 (150-400); RDW Coefficient Variation 14.1 % (11.7-14.2); RDW Standard Deviation 48.1 fL (35.1-46.3); Red Blood Cell Count 3.94 M/mm3 (4.30-5.90)
[2021-06-19 08:20] LABS: Albumin, Blood 3.1 g/dL (3.4-5.0); Anion Gap 6 mmol/L (6-16); Blood Urea Nitrogen 21 mg/dL (8-24); CO2, Blood 27 mmol/L (21-32); Calcium, Blood 11.6 mg/dL (8.5-10.1); Chloride, Blood 108 mmol/L (98-108); Creatinine, Blood 1.91 mg/dL (0.60-1.20); Glomerular Filtration Rate 34 (60-); Glucose, Blood 118 mg/dL (70-99); Magnesium, Blood 1.7 mg/dL (1.6-2.4); Phosphorus, Blood 3.2 mg/dL (2.5-4.9); Potassium, Blood 3.5 mmol/L (3.5-5.5); Sodium, Blood 141 mmol/L (136-145)
--- NOTE | 2021-06-19 19:29 | NUR ---
remains confused but orintated to self and location, alert when awake but spends much time sleeping and is not pleased to be awakened, call light in reach, 02 at 2L via nc, saline locked, call light in reach, bsr shared with noc nurse and pt
--- NOTE | 2021-06-20 01:36 | NUR ---
VERIFIED VIDEO MONITORING VERIFIED VIDEO MONITORING IS IN PLACE
--- NOTE | 2021-06-20 04:00 | NUR ---
SHIFT SUMMARY ADMITTED FOR AMS. POSSIBLE UTI. DEBORAH ON CKD. FREQUENT FALLS. DNR CODE. CURRENTLY LIVES W/SPOUSE BUT MAY BE BEYOND HER CARE. TELEMETRY: NSR @ 88 BPM W/PVC'S. REFUSES PHYSICAL & OCCUPATIONAL THERAPIES @ TIMES. IV ANTIBIOTICS ARE SCHEDULED. ON 3 LPM O2 @ BASELINE. HX: COPD, MILD COGNITIVE IMPAIRMENT. A&O X 2.
[2021-06-20 05:55] LABS: BASOPHILS ABSOLUTE AUTO 0.06 K/mm3 (0.00-0.23); BASOPHILS PERCENT AUTO 1 % (0-2); EOSINOPHILS ABSOLUTE AUTO 0.22 K/mm3 (0.00-0.68); EOSINOPHILS PERCENT AUTO 3 % (0-6); Hematocrit 38.1 % (37.0-53.0); Hemoglobin 12.1 g/dL (13.5-17.5); IMMATURE GRAN ABSOLUTE AUTO 0.01 K/mm3 (0.00-0.10); IMMATURE GRAN PERCENT AUTO 0 % (0-1); LYMPHOCYTES ABSOLUTE AUTO 2.01 K/mm3 (0.84-5.20); LYMPHOCYTES PERCENT AUTO 28 % (21-46); MONOCYTES ABSOLUTE AUTO 0.81 K/mm3 (0.16-1.47); MONOCYTES PERCENT AUTO 11 % (4-13); Mean Corpuscular HGB 29.5 pg (26.0-34.0); Mean Corpuscular HGB Conc 31.8 g/dL (31.5-36.5); Mean Corpuscular Volume 93 fL (80-100); Mean Platelet Volume 11.1 fL (9.1-12.4); NEUTROPHILS ABSOLUTE AUTO 4.16 K/mm3 (1.96-9.15); NEUTROPHILS PERCENT AUTO 57 % (41-73); Platelet Count 218 K/mm3 (150-400); RDW Standard Deviation 47.7 fL (35.1-46.3); White Blood Cell Count 7.27 K/mm3 (4.00-11.30)
[2021-06-20 06:32] LABS: Albumin, Blood 3.3 g/dL (3.4-5.0); Anion Gap 7 mmol/L (6-16); Blood Urea Nitrogen 25 mg/dL (8-24); Bun/Creatinine Ratio 12.6 (12.0-20.0); CO2, Blood 28 mmol/L (21-32); Calcium, Blood 12.3 mg/dL (8.5-10.1); Chloride, Blood 106 mmol/L (98-108); Creatinine, Blood 1.98 mg/dL (0.60-1.20); Glomerular Filtration Rate 33 (60-); Glucose, Blood 112 mg/dL (70-99); Magnesium, Blood 1.9 mg/dL (1.6-2.4); Phosphorus, Blood 3.1 mg/dL (2.5-4.9); Potassium, Blood 3.5 mmol/L (3.5-5.5); Sodium, Blood 141 mmol/L (136-145)
--- NOTE | 2021-06-20 12:37 | NUR ---
Spoke with on the phone. She states that she is starting the medicaid process and will be talking with a joanna today to help fill out the application. is also going to go to the bank to see if she can access his bank accounts inorder to pay the bills that he pays from his account. She is also looking at getting POA. Informed of the d/c plan and the need to get insurance authorization. There is a chance that insurance will deny SNF and discussed with this. Discussed the next option would be home with home health. She reports that they can't afford to pay for home health out of their own money and if they have to do it this time, they will not take services. Told that we will look at all options and I would keep her in the loop on the plans. -eliane ([email or web address], 12:37 PM)
[2021-06-20 13:31] LABS: SARS-Cov-2 (COVID-19) PCR, MMC NEGATIVE (NEGATIVE)
--- NOTE | 2021-06-20 18:34 | NUR ---
SHIFT SUMMARY PATIENT IS A/O X2, AND COOPERATIVE WITH CARE. THE PATIENT MAY POSSIBLY DISCHARGE TO A SNF TOMORROW. VSS, NO ACUTE CHANGES THIS SHIFT.
--- NOTE | 2021-06-21 01:04 | NUR ---
VERIFIED VIDEO MONITORING CALLED VIDEO MONITORING TO VERIFY VIDEO MONITORING IS IN PLACE
--- NOTE | 2021-06-21 03:57 | NUR ---
SHIFT SUMMARY ADMITTED FOR AMS/FALL, UTI/SEPSIS. DNR CODE. HE LIVES AT HOME WITH SPOUSE, BUT HE IS BEYOND HER CARE. PLAN IS FOR DC TO [facility] TODAY, INSURANCE PERMITTING. PHYSICAL & OCCUPATIONAL THERAPIES WORKING WITH PT. HEAVY 2 PERSON ASSIST TO BSC. A&O X 1-2. TELEMETRY: NSR W/PVC'S @ 91 BPM. ANTIBIOTICS ARE SCHEDULED. PILLS WHOLE W/SAUCE. INCONTINENT, ATTENDS IN PLACE. THIS SHIFT HE HAS BEEN MORE IMPULSIVE, REMOVING TELEMTRY CORDS X2 AND NASAL CANNULA X1. HE DID FALL ASLEEP TOWARDS END OF SHIFT.
[2021-06-21 14:10] LABS: SARS-Cov-2 (COVID-19) PCR, MMC NEGATIVE (NEGATIVE)
--- NOTE | 2021-06-21 17:04 | NUR ---
SHIFT SUMMARY PATIENT IS ALERT AND ORIENTED TO SELF, AND LOCATION. PATIENT SLEPT THIS MORNING UNTIL LUNCH. THE PATIENT RECEIVED THEIR KEFLEX THIS SHIFT. PATIENT COOPERATED WITH PHYSICAL THERAPY AND OCCUPATIONAL THERAPY THIS SHIFT. THE PLAN IS TO POSSIBLY D/C THE PATIENT TO [facility] TOMORROW AM IF AUTHORIZATION CLEARS. VITAL SIGNS STABLE, CALL LIGHT WITHIN REACH.
[2021-06-22 04:42] LABS: BASOPHILS ABSOLUTE AUTO 0.08 K/mm3 (0.00-0.23); BASOPHILS PERCENT AUTO 1 % (0-2); EOSINOPHILS ABSOLUTE AUTO 0.18 K/mm3 (0.00-0.68); EOSINOPHILS PERCENT AUTO 3 % (0-6); Hematocrit 36.5 % (37.0-53.0); Hemoglobin 11.6 g/dL (13.5-17.5); IMMATURE GRAN ABSOLUTE AUTO 0.01 K/mm3 (0.00-0.10); IMMATURE GRAN PERCENT AUTO 0 % (0-1); LYMPHOCYTES ABSOLUTE AUTO 1.86 K/mm3 (0.84-5.20); LYMPHOCYTES PERCENT AUTO 28 % (21-46); MONOCYTES ABSOLUTE AUTO 0.89 K/mm3 (0.16-1.47); MONOCYTES PERCENT AUTO 14 % (4-13); Mean Corpuscular HGB 29.7 pg (26.0-34.0); Mean Corpuscular HGB Conc 31.8 g/dL (31.5-36.5); Mean Corpuscular Volume 94 fL (80-100); Mean Platelet Volume 10.8 fL (9.1-12.4); NEUTROPHILS ABSOLUTE AUTO 3.56 K/mm3 (1.96-9.15); NEUTROPHILS PERCENT AUTO 54 % (41-73); Platelet Count 218 K/mm3 (150-400); RDW Coefficient Variation 14.2 % (11.7-14.2); RDW Standard Deviation 48.3 fL (35.1-46.3); White Blood Cell Count 6.58 K/mm3 (4.00-11.30)
[2021-06-22 04:58] LABS: Anion Gap 4 mmol/L (6-16); Blood Urea Nitrogen 29 mg/dL (8-24); Bun/Creatinine Ratio 15.3 (12.0-20.0); CO2, Blood 30 mmol/L (21-32); Calcium, Blood 12.9 mg/dL (8.5-10.1); Chloride, Blood 107 mmol/L (98-108); Glomerular Filtration Rate 34 (60-); Glucose, Blood 129 mg/dL (70-99); Phosphorus, Blood 3.6 mg/dL (2.5-4.9); Potassium, Blood 3.6 mmol/L (3.5-5.5); Sodium, Blood 141 mmol/L (136-145)
--- NOTE | 2021-06-22 05:35 | NUR ---
RECEIVED PATIENT IN BED ALERT AND ORIENTED X2. RESPIRATIONS UNLABORED. PATIENT DENIES PAIN OR DISCOMFORT. PATIENT REPOSITIONED FOR COMFORT. ADLS PROVIDED, SAFETY MEASURES IN PLACE.
[2021-06-22] MEDS ORDERED: DOCU100 PO (14:59)
[2021-06-22] MEDS ORDERED: CALCITONIN-SAL3.7 M1 (14:59)
[2021-06-22] MEDS ORDERED: NIFE30ER PO (15:01)
[2021-06-22 16:10] LABS: A/G RATIO 0.9 (0.7-1.7); ALBUMIN 3.4 g/dL (2.9-4.4); ALPHA-1-GLOBULIN 0.3 g/dL (0.0-0.4); ALPHA-2-GLOBULIN 0.9 g/dL (0.4-1.0); BETA GLOBULIN 1.3 g/dL (0.7-1.3); GAMMA GLOBULIN 1.7 g/dL (0.4-1.8); IMMUNOGLOBULIN A, QN, SERUM 526 mg/dL (61-437); IMMUNOGLOBULIN G, QN, SERUM 1436 mg/dL (603-1613); IMMUNOGLOBULIN M, QN, SERUM 95 mg/dL (15-143); M-SPIKE 0.5 g/dL (Not Observed); PROTEIN, TOTAL, SERUM 7.4 g/dL (6.0-8.5)
--- NOTE | 2021-06-22 18:23 | NUR ---
DISCHARGE SUMMARY PT DC'D AT APPROX 1800 VIA WHEELCHAIR BY [facility]. REPORT CALLED TO SOHAN @ [phone]. UPDATED REGARDING PT LEAVING. PACKET PROVIDED TO TRANSPORT.
== END 2021-06-22 18:00 | DRG 871 ==
LOC: ER 02:33 → MEDS 05:05
PROVIDERS: Family Medicine; Student in an Organized Health Care Education/Training Program; ADMIT Internal Medicine
DX: A41.9 Sepsis, unspecified organism (principal); G93.41 Metabolic encephalopathy; J96.11 Chronic respiratory failure with hypoxia; N17.9 Acute kidney failure, unspecified; N39.0 Urinary tract infection, site not specified; Z66 Do not resuscitate; Z20.822 Contact with and (suspected) exposure to COVID-19; R65.20 Severe sepsis without septic shock; J44.9 Chronic obstructive pulmonary disease, unspecified; N18.30 Chronic kidney disease, stage 3 unspecified; E83.52 Hypercalcemia; N47.1 Phimosis; E66.01 Morbid (severe) obesity due to excess calories; Z68.32 Body mass index [BMI] 32.0-32.9, adult; D50.9 Iron deficiency anemia, unspecified; I12.9 Hypertensive chronic kidney disease with stage 1 through stage 4 chronic kidney disease, or unspecified chronic kidney disease; E11.42 Type 2 diabetes mellitus with diabetic polyneuropathy; E11.22 Type 2 diabetes mellitus with diabetic chronic kidney disease; Z79.82 Long term (current) use of aspirin; Z79.84 Long term (current) use of oral hypoglycemic drugs; Z79.899 Other long term (current) drug therapy; Z99.81 Dependence on supplemental oxygen; Z87.891 Personal history of nicotine dependence; Z98.890 Other specified postprocedural states
CPT/HCPCS: 31502; 36415; 51701; 70450; 71045; 80048; 80069; 81001; 82306; 82947; 83735; 83970; 84100; 84145; 84165; 84443; 85025; 87086; 93005; 93010; 96365; 97110; 97110-CQ; 97116; 97162; 97166; 97530; 97530-CQ; 97535; 99285-25; A9270; J0696; J1650; J1815; J1940; J3475; J3480; J7030; J7050; J7060; U0004

== ENCOUNTER 2021-08-06 06:57 | Inpatient (IN) | payer MEDICARE ==
[~2021-08-06] VITALS: Ht 182.9 cm; Wt 123.2 kg
[~2021-08-06 06:57] MED LIST changes: +CALCITONIN-SAL3.7 M1; +DOCU100 PO; +NIFE30ER PO
[2021-08-06 07:33] LABS: BASOPHILS ABSOLUTE AUTO 0.06 K/mm3 (0.00-0.23); BASOPHILS PERCENT AUTO 0 % (0-2); EOSINOPHILS ABSOLUTE AUTO 0.02 K/mm3 (0.00-0.68); EOSINOPHILS PERCENT AUTO 0 % (0-6); Hematocrit 31.7 % (37.0-53.0); Hemoglobin 10.6 g/dL (13.5-17.5); IMMATURE GRAN ABSOLUTE AUTO 0.05 K/mm3 (0.00-0.10); IMMATURE GRAN PERCENT AUTO 0 % (0-1); LYMPHOCYTES ABSOLUTE AUTO 0.98 K/mm3 (0.84-5.20); LYMPHOCYTES PERCENT AUTO 7 % (21-46); MONOCYTES ABSOLUTE AUTO 1.33 K/mm3 (0.16-1.47); MONOCYTES PERCENT AUTO 9 % (4-13); Mean Corpuscular HGB 30.6 pg (26.0-34.0); Mean Corpuscular HGB Conc 33.4 g/dL (31.5-36.5); Mean Corpuscular Volume 92 fL (80-100); Mean Platelet Volume 10.1 fL (9.1-12.4); NEUTROPHILS ABSOLUTE AUTO 12.56 K/mm3 (1.96-9.15); NEUTROPHILS PERCENT AUTO 84 % (41-73); Platelet Count 236 K/mm3 (150-400); RDW Standard Deviation 47.1 fL (35.1-46.3); Red Blood Cell Count 3.46 M/mm3 (4.30-5.90)
[2021-08-06 07:50] LABS: Albumin/Globulin Ratio 0.6 (0.8-1.8); Bilirubin, Total 0.6 mg/dL (0.1-1.0); Calcium, Blood 11.4 mg/dL (8.5-10.1); Creatinine, Blood 2.53 mg/dL (0.60-1.20); Globulin, Blood 4.8 g/dL (2.2-4.0); Potassium, Blood 4.6 mmol/L (3.5-5.5); Total Protein, Blood 7.8 g/dL (6.4-8.2)
[2021-08-06 08:29] LABS: Source, Urine Clean Catch
[2021-08-06 08:32] LABS: Bilirubin, Urine Neg (Neg); Blood, Urine 4+ (Neg); Glucose Qualitative, Urine Neg (Neg); Ketones, Urine Neg (Neg); Leukocyte Esterase, Urine 3+ (Neg); Nitrite, Urine Neg (Neg); Protein, Urine 3+ (Neg); Specific Gravity, Urine 1.025 (1.003-1.022); Urobilinogen, Urine NORM (Normal)
[2021-08-06 08:43] LABS: Appearance, Urine Cloudy (Clear); Color, Urine Yellow (P-Yellow)
[2021-08-06 08:45] LABS: Bacteria Mod /hpf; Red Blood Cells, Urine 0-2 /hpf (0-2); Squamous Epithelial Cells Few /hpf (Few); White Blood Cells, Urine TNTC /hpf (0-5)
[2021-08-06 09:21] LABS: SARS-Cov-2 (COVID-19) PCR, MMC NEGATIVE (NEGATIVE)
--- NOTE | 2021-08-06 17:54 | NUR ---
SHIFT SUMMARY: ASSUMED CARE OF PT UPON HIS ARRIVAL FROM ED AT 1350. A&O X 2, PLEASANT BUT FORGETFUL. WEAK IN BLE. O2 @ 2 L/MIN NC, DIM BREATH SOUNDS THROUGHOUT WITH EXP WHEEZES. INCONTINENT OF BLADDER, ATTENDS IN PLACE. USES WALKER AT HOME AT BASELINE. GAVE PT'S TELEPHONE UPDATE ON PT'S CONDITION AND PLAN.
[2021-08-07 04:49] LABS: BASOPHILS ABSOLUTE AUTO 0.04 K/mm3 (0.00-0.23); BASOPHILS PERCENT AUTO 1 % (0-2); EOSINOPHILS ABSOLUTE AUTO 0.08 K/mm3 (0.00-0.68); EOSINOPHILS PERCENT AUTO 1 % (0-6); Hematocrit 28.1 % (37.0-53.0); Hemoglobin 9.2 g/dL (13.5-17.5); IMMATURE GRAN ABSOLUTE AUTO 0.02 K/mm3 (0.00-0.10); IMMATURE GRAN PERCENT AUTO 0 % (0-1); LYMPHOCYTES ABSOLUTE AUTO 1.54 K/mm3 (0.84-5.20); LYMPHOCYTES PERCENT AUTO 23 % (21-46); MONOCYTES ABSOLUTE AUTO 0.81 K/mm3 (0.16-1.47); MONOCYTES PERCENT AUTO 12 % (4-13); Mean Corpuscular HGB 30.2 pg (26.0-34.0); Mean Corpuscular HGB Conc 32.7 g/dL (31.5-36.5); Mean Corpuscular Volume 92 fL (80-100); Mean Platelet Volume 9.9 fL (9.1-12.4); NEUTROPHILS ABSOLUTE AUTO 4.13 K/mm3 (1.96-9.15); NEUTROPHILS PERCENT AUTO 62 % (41-73); Platelet Count 186 K/mm3 (150-400); RDW Coefficient Variation 14.1 % (11.7-14.2); RDW Standard Deviation 47.5 fL (35.1-46.3); Red Blood Cell Count 3.05 M/mm3 (4.30-5.90); White Blood Cell Count 6.62 K/mm3 (4.00-11.30)
--- NOTE | 2021-08-07 04:56 | NUR ---
ADVISOR ADVOCATE AN[employer]EL CO FOUNDER SUMMARY PT AAOX3, ANSWERED ORIENTATION QUESTIONS APPROPRIATELY BUT IS A BIT FORGETFUL AT TIMES. EASILY REORIENTED. BED ALARM ON FOR SAFETY PT IS VERY WEAK. PT REQUESTED SCD'S BE REMOVED SO HE COULD SLEEP THEY WERE KEEPING HIM AWAKE. VSS, WILL CONTINUE TO MONITOR.
[2021-08-07 05:32] LABS: Bun/Creatinine Ratio 15.2 (12.0-20.0); Calcium, Blood 10.6 mg/dL (8.5-10.1); Creatinine, Blood 2.24 mg/dL (0.60-1.20); Magnesium, Blood 1.5 mg/dL (1.6-2.4); Potassium, Blood 4.3 mmol/L (3.5-5.5)
--- NOTE | 2021-08-07 16:40 | NUR ---
I spoke to the patient today in his room (RM [id number]) His Billie was there as well. Patient states they live in a single level home. Patient received PT every Saturday and . Patient has two walkers that he uses daily along with 02 machine at home. Patient's provides support with ADLs and transportation. We anticipate that patient will be discharged tomorrow upon labs/culture review.
--- NOTE | 2021-08-07 17:43 | NUR ---
SHIFT SUMMARY PATIENT ALERT AND ORIENTED THIS SHIFT. PATIENT WORKED WITH PT THIS MORNING, AMBULATING IN THE ROOM. NO ACUTE CHANGES THIS SHIFT. PATIENT ALTERNATES SITTING IN CHAIR AND LYING IN BED. PATIENT CURRENTLY SITTING UP IN BED WATCHING TELEVISION, EATING DINNER.
[2021-08-08 04:59] LABS: BASOPHILS ABSOLUTE AUTO 0.04 K/mm3 (0.00-0.23); BASOPHILS PERCENT AUTO 1 % (0-2); EOSINOPHILS PERCENT AUTO 3 % (0-6); IMMATURE GRAN ABSOLUTE AUTO 0.02 K/mm3 (0.00-0.10); IMMATURE GRAN PERCENT AUTO 0 % (0-1); LYMPHOCYTES ABSOLUTE AUTO 2.05 K/mm3 (0.84-5.20); LYMPHOCYTES PERCENT AUTO 28 % (21-46); MONOCYTES ABSOLUTE AUTO 1.13 K/mm3 (0.16-1.47); MONOCYTES PERCENT AUTO 16 % (4-13); Mean Corpuscular HGB 30.6 pg (26.0-34.0); Mean Corpuscular HGB Conc 33.3 g/dL (31.5-36.5); Mean Corpuscular Volume 92 fL (80-100); NEUTROPHILS ABSOLUTE AUTO 3.78 K/mm3 (1.96-9.15); NEUTROPHILS PERCENT AUTO 52 % (41-73); Platelet Count 208 K/mm3 (150-400); RDW Standard Deviation 47.7 fL (35.1-46.3); Red Blood Cell Count 3.27 M/mm3 (4.30-5.90); White Blood Cell Count 7.22 K/mm3 (4.00-11.30)
--- NOTE | 2021-08-08 05:33 | NUR ---
ELECTRONIC PUBLISHER SUMMARY PT AAOX4, PLEASANT AND COOPERATIVE. MENTATION IMPROVED TONIGHT, PT MORE CLEAR. ABLE TO STAND UP W/ FWW AND USE BSC WITH MINIMAL ASSISTANCE. VSS, WILL CONTINUE TO MONITOR.
[2021-08-08 05:37] LABS: Albumin, Blood 2.6 g/dL (3.4-5.0); Albumin/Globulin Ratio 0.6 (0.8-1.8); Bilirubin, Total 0.3 mg/dL (0.1-1.0); Bun/Creatinine Ratio 14.6 (12.0-20.0); Calcium, Blood 10.4 mg/dL (8.5-10.1); Creatinine, Blood 2.06 mg/dL (0.60-1.20); Globulin, Blood 4.2 g/dL (2.2-4.0); Potassium, Blood 4.3 mmol/L (3.5-5.5); Total Protein, Blood 6.8 g/dL (6.4-8.2)
[2021-08-08] MEDS ORDERED: CIPR500 PO (11:01)
--- NOTE | 2021-08-08 13:48 | NUR ---
Per chart review with Dr. Montes patient appropriate for discharge. Additional [facility] ordered for patient. I've contacted Summer with [facility] and she is aware orders will be added. patient has already been receiving PT through [facility]. I contacted patient's and let her know pt will be discharged this afternoon. I scheduled a hospital follow up with Dr. Mistry on August 11, 2021 @ Noon. PT and his are aware of the appointment. Patient is returning home with spouse, feels his situation is safe, denied barriers to discharge or concerns with safety. No DME orders necessary for discharge.
[2021-08-08] MEDS ORDERED: AMOCLA875 PO (14:25)
--- NOTE | 2021-08-08 17:28 | NUR ---
DISCHARGE SUMMARY PATIENT DISCHARGED TO HOME. PATIENT ALERT AND ORIENTED THIS SHIFT. PATIENT UP WITH SBA, USING FWW, IN THE ROOM THIS SHIFT. IV REMOVED PRIOR TO DISCHARGE. PATIENT DENIES PAIN THROUGHOUT THIS SHIFT. PATIENT REMAINS ON BASELINE 2L O2. PATIENT'S IN THE ROOM FOR DISCHARGE INSTRUCTIONS. PATIENT TO VEHICLE VIA WHEELCHAIR.
== END 2021-08-08 15:30 | disposition home health service (06) | DRG 872 ==
LOC: ER 06:57 → ERHOLD 06:58 → MEDS 13:45
PROVIDERS: Family Medicine; Physician Assistant; Student in an Organized Health Care Education/Training Program; ADMIT Internal Medicine
DX: A40.8 Other streptococcal sepsis (principal); N39.0 Urinary tract infection, site not specified; J96.11 Chronic respiratory failure with hypoxia; N18.4 Chronic kidney disease, stage 4 (severe); N17.9 Acute kidney failure, unspecified; J44.9 Chronic obstructive pulmonary disease, unspecified; Z20.822 Contact with and (suspected) exposure to COVID-19; I12.9 Hypertensive chronic kidney disease with stage 1 through stage 4 chronic kidney disease, or unspecified chronic kidney disease; N40.0 Benign prostatic hyperplasia without lower urinary tract symptoms; E03.9 Hypothyroidism, unspecified; G31.84 Mild cognitive impairment of uncertain or unknown etiology; E11.22 Type 2 diabetes mellitus with diabetic chronic kidney disease; Z87.891 Personal history of nicotine dependence; Z99.81 Dependence on supplemental oxygen; Z98.49 Cataract extraction status, unspecified eye; Z98.890 Other specified postprocedural states; Z79.82 Long term (current) use of aspirin; Z79.84 Long term (current) use of oral hypoglycemic drugs; Z79.899 Other long term (current) drug therapy
CPT/HCPCS: 36415; 71045; 80048; 80053; 81001; 82947; 83605; 83735; 85025; 87086; 93005; 93010; 96365; 96372; 96375; 97110; 97162; 99285-25; A9270; G0378; J1650; J3475; J7030; J7050; U0004

== ENCOUNTER 2022-09-10 14:12 | Observation (INO) | payer MEDICARE ==
[~2022-09-10] VITALS: Ht 188 cm; Wt 136.1 kg
[~2022-09-10 14:12] MED LIST changes: +AMOCLA875 PO; +CIPR500 PO
[2022-09-10 15:53] LABS: Influenza A, PCR NEGATIVE (NEGATIVE); Influenza B, PCR NEGATIVE (NEGATIVE); Resp Syncytial Virus, PCR NEGATIVE (NEGATIVE)
[2022-09-10 15:56] LABS: Albumin, Blood 3.5 g/dL (3.4-5.0); Albumin/Globulin Ratio 0.7 (0.8-1.8); Bilirubin, Total 0.5 mg/dL (0.1-1.0); Bun/Creatinine Ratio 16.4 (12.0-20.0); Calcium, Blood 8.9 mg/dL (8.5-10.1); Creatinine, Blood 2.07 mg/dL (0.60-1.20); Globulin, Blood 4.9 g/dL (2.2-4.0); Potassium, Blood 4.3 mmol/L (3.5-5.5); Total Protein, Blood 8.4 g/dL (6.4-8.2)
[2022-09-10 16:00] LABS: BASOPHILS ABSOLUTE AUTO 0.03 K/mm3 (0.00-0.23); BASOPHILS PERCENT AUTO 1 % (0-2); EOSINOPHILS ABSOLUTE AUTO 0.01 K/mm3 (0.00-0.68); EOSINOPHILS PERCENT AUTO 0 % (0-6); Hematocrit 35.7 % (37.0-53.0); Hemoglobin 11.7 g/dL (13.5-17.5); IMMATURE GRAN ABSOLUTE AUTO 0.04 K/mm3 (0.00-0.10); IMMATURE GRAN PERCENT AUTO 1 % (0-1); LYMPHOCYTES ABSOLUTE AUTO 1.71 K/mm3 (0.84-5.20); LYMPHOCYTES PERCENT AUTO 27 % (21-46); MONOCYTES ABSOLUTE AUTO 1.15 K/mm3 (0.16-1.47); MONOCYTES PERCENT AUTO 18 % (4-13); Mean Corpuscular HGB 30.3 pg (26.0-34.0); Mean Corpuscular HGB Conc 32.8 g/dL (31.5-36.5); Mean Corpuscular Volume 93 fL (80-100); NEUTROPHILS ABSOLUTE AUTO 3.41 K/mm3 (1.96-9.15); NEUTROPHILS PERCENT AUTO 54 % (41-73); RDW Coefficient Variation 15.8 % (11.7-14.2); Red Blood Cell Count 3.86 M/mm3 (4.30-5.90); White Blood Cell Count 6.35 K/mm3 (4.00-11.30)
[2022-09-10 16:19] LABS: SARS-Cov-2 (COVID-19) PCR, MMC POSITIVE (NEGATIVE)
[2022-09-10 16:29] LABS: Platelet Count 169 K/mm3 (150-400)
[2022-09-11 05:20] LABS: Source, Urine Peds U Bag
[2022-09-11 05:21] LABS: BASOPHILS ABSOLUTE AUTO 0.02 K/mm3 (0.00-0.23); BASOPHILS PERCENT AUTO 0 % (0-2); EOSINOPHILS ABSOLUTE AUTO 0.03 K/mm3 (0.00-0.68); EOSINOPHILS PERCENT AUTO 1 % (0-6); Hematocrit 30.9 % (37.0-53.0); Hemoglobin 10.1 g/dL (13.5-17.5); IMMATURE GRAN ABSOLUTE AUTO 0.01 K/mm3 (0.00-0.10); IMMATURE GRAN PERCENT AUTO 0 % (0-1); LYMPHOCYTES ABSOLUTE AUTO 1.56 K/mm3 (0.84-5.20); LYMPHOCYTES PERCENT AUTO 35 % (21-46); MONOCYTES ABSOLUTE AUTO 0.83 K/mm3 (0.16-1.47); MONOCYTES PERCENT AUTO 18 % (4-13); Mean Corpuscular HGB 30.1 pg (26.0-34.0); Mean Corpuscular HGB Conc 32.7 g/dL (31.5-36.5); Mean Corpuscular Volume 92 fL (80-100); Mean Platelet Volume 10.3 fL (9.1-12.4); NEUTROPHILS ABSOLUTE AUTO 2.05 K/mm3 (1.96-9.15); NEUTROPHILS PERCENT AUTO 46 % (41-73); Platelet Count 157 K/mm3 (150-400); RDW Coefficient Variation 15.4 % (11.7-14.2); RDW Standard Deviation 52.6 fL (35.1-46.3); Red Blood Cell Count 3.35 M/mm3 (4.30-5.90)
[2022-09-11 05:33] LABS: Bun/Creatinine Ratio 15.7 (12.0-20.0); Calcium, Blood 7.7 mg/dL (8.5-10.1); Creatinine, Blood 1.91 mg/dL (0.60-1.20); Potassium, Blood 3.8 mmol/L (3.5-5.5)
[2022-09-11 05:44] LABS: Appearance, Urine Clear (Clear); Bilirubin, Urine Neg (Neg); Blood, Urine 1+ (Neg); Color, Urine Yellow (P-Yellow); Glucose Qualitative, Urine Neg (Neg); Ketones, Urine Neg (Neg); Leukocyte Esterase, Urine Neg (Neg); Nitrite, Urine Neg (Neg); Protein, Urine 2+ (Neg); Specific Gravity, Urine 1.015 (1.003-1.022); Urobilinogen, Urine NORM (Normal)
[2022-09-11 05:58] LABS: Bacteria Few /hpf; Red Blood Cells, Urine 0-2 /hpf (0-2); Squamous Epithelial Cells Few /hpf (Few)
[2022-09-11 05:59] LABS: White Blood Cells, Urine 0-2 /hpf (0-5)
--- NOTE | 2022-09-11 06:22 | NUR ---
A/OX4; CALM AND COOPERATIVE. DENIES PAIN, DENIES NAUSEA. Q2 CBG CHECKS PER ORDERS. DEXTROSE 10% INFUSING. HIGH SUGAR /CARB SNACKS PUSHED T/O SHIFT. POOR PO FLUID INTAKE DESPITE ENCOURAGEMENT. FEBRILE; PRN TYLENOL ORDER OBTAINED /GIVEN; CALLED AGAIN TO CHANGE TO Q4 HRS (CREATININE IS TOO HIGH TO REQUEST IBUPROFEN). TEMPS BETWEEN 100.1 TO 101.9 DESPITE TYLENOL, ICE PACKS UNDER ARMS, AND COLD CLOTHS ON HEAD T/O SHIFT. INC AND IN ATTENDS (HEAVY WETTER). UA OBTAINED VIA PED COLLECTION BAG. 2X ASSIST Q2 TURN. AMBULATORY AT BASELINE WITH WALKER PER PATIENT. COVID + ISOLATION INITIATED /MAINTAINED. BED ALARM SET. CALL LIGHT IN REACH; ENCOURAGED TO MAKE NEEDS KNOWN.
--- NOTE | 2022-09-11 19:36 | NUR ---
SHIFT SUMMARY PT RESTING QUIETLY AT START OF SHIFT. WOKE EASILY FOR CARE. PT AWAKE MOST OF THE DAY; CALLING EVERY COUPLE OF MINUTES. NO ACUTE DISTRESS, JUST VERY NEEDY. PT OCCASSIONALLY VOIDS HEAVY AND OTHER TIMES ONLY 5-50cc AT A TIME. BLADDER SCAN DONE A COUPLE OF TIMES; SEE CHART. SOME RETENSION NOTED, EVEN AFTER VOIDS. PT IS VERY PLEASANT AND CO-OP WITH CARE. ATTEMPTED TO WORK WITH P/T THIS AFTERNOON, BUT TOO WEAK TO STAND AT BS. PT ON RA MOST OF THE DAY WITH BIOX IN LOW 90'S. P/T REPORTED BIOX DECREASED TO UPPER 80'S WITH EXERTION. BLOOD GLUCOSE REMAINED STABLE THRU OUT THE DAY; SEE CHART. PT EATS OK, BUT DOES NOT DRINK MUCH FOR FLUID. PT WAS HOPING TO D/C TO HOME TODAY, BUT WAS TOO WEAK TO GET UP OR BE ABLE TO WALK INTO HIS HOUSE. D/C ORDERS ON HOLD. PT MAY NEED TO GO TO REHAB BEFORE GOING BACK HOME. NO C/O PAIN. DENIED FURTHER NEEDS AT THIS TIME. REPORT GIVEN TO ONCOMING RN. CALL LT IN REACH.
[2022-09-12 06:40] LABS: BASOPHILS ABSOLUTE AUTO 0.02 K/mm3 (0.00-0.23); BASOPHILS PERCENT AUTO 0 % (0-2); EOSINOPHILS ABSOLUTE AUTO 0.03 K/mm3 (0.00-0.68); EOSINOPHILS PERCENT AUTO 1 % (0-6); Hematocrit 33.5 % (37.0-53.0); Hemoglobin 10.8 g/dL (13.5-17.5); IMMATURE GRAN ABSOLUTE AUTO 0.01 K/mm3 (0.00-0.10); IMMATURE GRAN PERCENT AUTO 0 % (0-1); LYMPHOCYTES PERCENT AUTO 47 % (21-46); MONOCYTES ABSOLUTE AUTO 0.73 K/mm3 (0.16-1.47); MONOCYTES PERCENT AUTO 15 % (4-13); Mean Corpuscular HGB 29.5 pg (26.0-34.0); Mean Corpuscular HGB Conc 32.2 g/dL (31.5-36.5); Mean Corpuscular Volume 92 fL (80-100); NEUTROPHILS ABSOLUTE AUTO 1.86 K/mm3 (1.96-9.15); NEUTROPHILS PERCENT AUTO 38 % (41-73); Platelet Count 160 K/mm3 (150-400); RDW Coefficient Variation 15.5 % (11.7-14.2); RDW Standard Deviation 52.1 fL (35.1-46.3); Red Blood Cell Count 3.66 M/mm3 (4.30-5.90); White Blood Cell Count 4.95 K/mm3 (4.00-11.30)
[2022-09-12 06:51] LABS: Bun/Creatinine Ratio 15.3 (12.0-20.0); Calcium, Blood 8.4 mg/dL (8.5-10.1); Creatinine, Blood 2.15 mg/dL (0.60-1.20)
--- NOTE | 2022-09-12 17:37 | NUR ---
SHIFT SUMMARY PATIENT DENIES PAIN AND NAUSEA. PATIENT REPORTS SHORTNESS OF BREATH WITH ACTIVITY. PATIENT MAINTAINED SATURATIONS WITH ACTIVITY HOWEVER. CONFIRMED WITH PATIENT FAMILY THAT PATIENT WEAR 3L OF O2 AT NIGHT AND PRN DURING THE DAY AT HOME. PATIENT HAS BEEN ON 3L VIA N/C, ALL SHIFT. PATIENT MAINTAINING SATS AT 93%. PATIENT WORKED WITH PT TODAY. PATIENT ABLE TO STAND AND AMBULATE AROUND ROOM WITH FWW. PATIENT DAUGHTER CALLED FOR UPDATE, GIVEN AFTER CONFIRMED IT WAS OKAY WITH PATIENT. PATIENT CBG HAVE BEEN ABOVE 100 ALL DAY. PATIENT IS EATING AND DRINKING WELL. PATIENT IS PLEASANT AND COOPERATIVE WITH CARE.
--- NOTE | 2022-09-13 06:14 | NUR ---
SHIFT SUMMARY NOC PT A/OX 3-4. PT INC OF URINE X3 AND BM X 1. PT USES CALL LIGHT APPROPRIATELY. PT PLEASANT AND COOPERATIVE TO CARE. PT ON 3L/NC SPO2 >92%. PT WAS AFEBRILE DURING SHIFT. PT DID NOT GET UP DURING SHIFT BECAUSE OF FATIGUE FROM EARLIER IN THE DAY. PT IS CURRENTLY RESTING WITH BED RAILS UP, BED IN LOWEST POSITION, AND CALL LIGHT WITHIN REACH.
[2022-09-13] MEDS ORDERED: METF500 PO (11:49)
[2022-09-13] MEDS ORDERED: TAMS.4ER PO (11:50)
--- NOTE | 2022-09-13 16:50 | NUR ---
DISCHARGE: PT DISCHARGED VIA HOSPITAL WHEELCHAIR WITH GRANDDAUGHTER. IV TAKEN OUT WITHOUT COMPLICATIONS, REDNESS OR SWELLING. ALL BELONGINGS SENT WITH PT. READ D/C INSTRUCTIONS TO BOTH PT AND GRANDDAUGHTER AND EXPLAINED PT'S UPCOMING FOLLOW-UP APT ALONG WITH NEW MEDICATIONS AND WHEN TO COME BACK TO ER.
== END 2022-09-13 15:20 | disposition home health service (06) ==
LOC: ER 14:12 → ERHOLD 14:13 → MEDS 19:58
PROVIDERS: Emergency Medicine; Family Medicine; ADMIT Internal Medicine
DX: E11.649 Type 2 diabetes mellitus with hypoglycemia without coma (principal); U07.1 COVID-19; E11.22 Type 2 diabetes mellitus with diabetic chronic kidney disease; N18.30 Chronic kidney disease, stage 3 unspecified; E78.5 Hyperlipidemia, unspecified; I12.9 Hypertensive chronic kidney disease with stage 1 through stage 4 chronic kidney disease, or unspecified chronic kidney disease; N40.0 Benign prostatic hyperplasia without lower urinary tract symptoms
CPT/HCPCS: 0241U; 36415; 71045; 80048; 80053; 81001; 82947; 85025; 90686; 94761; 96360; 96361; 96372; 97110; 97116; 97162; 97530; 99285-25; A9270; G0008; G0378; J1644

== ENCOUNTER → 2022-10-16 | Outpatient (CLI) | payer MEDICARE ==
[~2022-10-16] MED LIST changes: +METF500 PO; +TAMS.4ER PO
== END | disposition home or self-care (01) ==
LOC: LAB 12:00 → LAB SHORT 12:00
DX: R35.0 Frequency of micturition (principal)
CPT/HCPCS: 87086

== ENCOUNTER 2023-06-09 14:50 | Emergency (ER) | payer MEDICARE ==
[~2023-06-09] VITALS: Ht 182.9 cm; Wt 125.6 kg
[2023-06-09 15:26] LABS: BASOPHILS ABSOLUTE AUTO 0.04 K/mm3 (0.00-0.23); BASOPHILS PERCENT AUTO 1 % (0-2); EOSINOPHILS ABSOLUTE AUTO 0.11 K/mm3 (0.00-0.68); EOSINOPHILS PERCENT AUTO 1 % (0-6); Hematocrit 31.6 % (37.0-53.0); Hemoglobin 10.6 g/dL (13.5-17.5); IMMATURE GRAN ABSOLUTE AUTO 0.03 K/mm3 (0.00-0.10); IMMATURE GRAN PERCENT AUTO 0 % (0-1); LYMPHOCYTES ABSOLUTE AUTO 1.33 K/mm3 (0.84-5.20); LYMPHOCYTES PERCENT AUTO 15 % (21-46); MONOCYTES ABSOLUTE AUTO 0.89 K/mm3 (0.16-1.47); MONOCYTES PERCENT AUTO 10 % (4-13); Mean Corpuscular HGB 31.3 pg (26.0-34.0); Mean Corpuscular HGB Conc 33.5 g/dL (31.5-36.5); Mean Corpuscular Volume 93 fL (80-100); Mean Platelet Volume 10.3 fL (9.1-12.4); NEUTROPHILS ABSOLUTE AUTO 6.34 K/mm3 (1.96-9.15); NEUTROPHILS PERCENT AUTO 73 % (41-73); Platelet Count 240 K/mm3 (150-400); RDW Coefficient Variation 13.3 % (11.7-14.2); RDW Standard Deviation 45.4 fL (35.1-46.3); Red Blood Cell Count 3.39 M/mm3 (4.30-5.90); White Blood Cell Count 8.74 K/mm3 (4.00-11.30)
[2023-06-09 15:46] LABS: Albumin, Blood 2.9 g/dL (3.4-5.0); Albumin/Globulin Ratio 0.6 (0.8-1.8); Bilirubin, Total 0.7 mg/dL (0.1-1.0); Bun/Creatinine Ratio 15.6 (12.0-20.0); Calcium, Blood 8.8 mg/dL (8.5-10.1); Creatinine, Blood 1.79 mg/dL (0.60-1.20); Globulin, Blood 5.2 g/dL (2.2-4.0); Potassium, Blood 4.2 mmol/L (3.5-5.5); Total Protein, Blood 8.1 g/dL (6.4-8.2)
[2023-06-09 16:07] LABS: Magnesium, Blood 1.8 mg/dL (1.6-2.4)
[2023-06-09 16:09] LABS: Phosphorus, Blood 2.3 mg/dL (2.5-4.9); Thyroid Stimulating Hormone 2.41 uIU/mL (0.360-4.800)
[2023-06-09 16:23] LABS: D-Dimer, Quantitative 1.25 mg/L FEU (0.00-0.52); International Normalized Ratio 0.98; Prothrombin Time Results 10.3 Sec (9.7-11.5)
[2023-06-09] MEDS ORDERED: METO25ER PO (16:28)
[2023-06-09] MEDS ORDERED: CALC.25 PO (16:28)
[2023-06-09 16:44] LABS: Influenza A, PCR NEGATIVE (NEGATIVE); Influenza B, PCR NEGATIVE (NEGATIVE); Resp Syncytial Virus, PCR NEGATIVE (NEGATIVE); SARS-Cov-2 (COVID-19) PCR, MMC NEGATIVE (NEGATIVE)
[2023-06-09 19:45] VITALS: BP 135/72
== END 2023-06-09 20:00 | disposition home or self-care (01) ==
LOC: ER 14:50
PROVIDERS: Emergency Medicine
DX: R53.1 Weakness (principal); I12.9 Hypertensive chronic kidney disease with stage 1 through stage 4 chronic kidney disease, or unspecified chronic kidney disease; E11.22 Type 2 diabetes mellitus with diabetic chronic kidney disease; N18.30 Chronic kidney disease, stage 3 unspecified; J44.9 Chronic obstructive pulmonary disease, unspecified; E66.9 Obesity, unspecified; Z68.37 Body mass index [BMI] 37.0-37.9, adult; Z20.822 Contact with and (suspected) exposure to COVID-19; Z79.82 Long term (current) use of aspirin; Z79.84 Long term (current) use of oral hypoglycemic drugs; Z79.899 Other long term (current) drug therapy; Z87.891 Personal history of nicotine dependence
CPT/HCPCS: 0241U; 71046; 71260; 80053; 83735; 83880; 84100; 84443; 84484; 85025; 85379; 85610; 85730; 93005; 93010; 99285-25; A9270; Q9967

== ENCOUNTER 2023-06-11 17:11 | Inpatient (IN) | payer MEDICARE, OTHER ==
[~2023-06-11] VITALS: Ht 188 cm; Wt 133.4 kg
[~2023-06-11 17:11] MED LIST changes: +CALC.25 PO; +METO25ER PO
[2023-06-11 18:40] LABS: BASOPHILS ABSOLUTE AUTO 0.05 K/mm3 (0.00-0.23); BASOPHILS PERCENT AUTO 1 % (0-2); EOSINOPHILS ABSOLUTE AUTO 0.13 K/mm3 (0.00-0.68); EOSINOPHILS PERCENT AUTO 1 % (0-6); Hematocrit 33.2 % (37.0-53.0); Hemoglobin 11.1 g/dL (13.5-17.5); IMMATURE GRAN ABSOLUTE AUTO 0.05 K/mm3 (0.00-0.10); IMMATURE GRAN PERCENT AUTO 1 % (0-1); LYMPHOCYTES ABSOLUTE AUTO 2.46 K/mm3 (0.84-5.20); LYMPHOCYTES PERCENT AUTO 23 % (21-46); MONOCYTES PERCENT AUTO 11 % (4-13); Mean Corpuscular HGB 31.4 pg (26.0-34.0); Mean Corpuscular HGB Conc 33.4 g/dL (31.5-36.5); Mean Corpuscular Volume 94 fL (80-100); NEUTROPHILS ABSOLUTE AUTO 6.83 K/mm3 (1.96-9.15); NEUTROPHILS PERCENT AUTO 64 % (41-73); Platelet Count 238 K/mm3 (150-400); RDW Coefficient Variation 13.2 % (11.7-14.2); RDW Standard Deviation 45.2 fL (35.1-46.3); Red Blood Cell Count 3.54 M/mm3 (4.30-5.90); White Blood Cell Count 10.72 K/mm3 (4.00-11.30)
[2023-06-11 19:12] LABS: Albumin, Blood 2.8 g/dL (3.4-5.0); Albumin/Globulin Ratio 0.5 (0.8-1.8); Bilirubin, Total 0.8 mg/dL (0.1-1.0); Bun/Creatinine Ratio 15.3 (12.0-20.0); Creatinine, Blood 2.16 mg/dL (0.60-1.20); Globulin, Blood 5.4 g/dL (2.2-4.0); Total Protein, Blood 8.2 g/dL (6.4-8.2)
[2023-06-11 20:11] LABS: Source, Urine Voided
[2023-06-11 20:43] LABS: Appearance, Urine Turbid (Clear); Bilirubin, Urine Neg (Neg); Blood, Urine 4+ (Neg); Color, Urine Yellow (P-Yellow); Glucose Qualitative, Urine Neg (Neg); Ketones, Urine Neg (Neg); Leukocyte Esterase, Urine 3+ (Neg); Nitrite, Urine Neg (Neg); Protein, Urine 3+ (Neg); Urobilinogen, Urine NORM (Normal)
[2023-06-11 20:54] LABS: Amorphous Mod (0-Heavy); Bacteria Many /hpf; Squamous Epithelial Cells Not Seen /hpf (Few); White Blood Cells, Urine TNTC /hpf (0-5)
[2023-06-11] MEDS ORDERED: ADALAT CC30 M1 PO (22:43)
[2023-06-11 23:55] VITALS: BP 102/51
[2023-06-12 04:30] VITALS: BP 107/49
--- NOTE | 2023-06-12 04:57 | NUR ---
SHIFT SUMMARY PATIENT IS ALERT AND ORIENTED. PATIENT HAS HAD NO ACUTE EVENTS THIS SHIFT. VITAL SIGNS REVIWED. PATIENT IS A RECENT ADMIT FOR UTI FROM ED. PATIENT HAS BEEN PLEASENT AND COOPERATIVE THIS SHIFT. IV FLUIDS INFUSING ORDERED. PATIENT HAS NOT COMPLAINED OF PAIN, NAUSEA, SOB OR VOMITTING THIS SHIFT. BED IN LOCKED AND LOWEST POSITION. CALL LIGHT IN PLACE. WILL MONITOR UNTIL SHIFT CHANGE.
[2023-06-12 06:53] LABS: Bun/Creatinine Ratio 15.4 (12.0-20.0); Calcium, Blood 8.6 mg/dL (8.5-10.1); Creatinine, Blood 1.95 mg/dL (0.60-1.20)
[2023-06-12 07:40] VITALS: BP 121/50
--- NOTE | 2023-06-12 10:57 | NUR ---
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 PHOTOS TAKEN AND DOCUMENTED. CALL PUT INTO DR. WU, HE WILL COME BY AND LOOK. OKAYED TO PLACE AN ORDER FOR A WOUND CONSULT.
[2023-06-12 14:07] LABS: Potassium, Blood 4.1 mmol/L (3.5-5.5)
[2023-06-12 14:22] LABS: Potassium, Blood 4.2 mmol/L (3.5-5.5)
--- NOTE | 2023-06-12 14:34 | NUR ---
WOUND CARE KEEP BL TOES DRY. PAINT BL GREAT TOES WITH BETADINE BID. ALLOW TO AIR DRY. OKAY TO LEAVE SAYRA OR COVER IF DRAINING. XRAY TO R FOOT ORDERED TO RULE OUT OSTEO PER DR. WU
[2023-06-12 15:21] VITALS: BP 113/55
--- NOTE | 2023-06-12 18:22 | NUR ---
SHIFT SUMMARY: PT IS AN 83 YEAR OLD MALE HERE FOR AN UTI. HE IS ALERT AND ORIENTED X4, BUT PT'S SHARED THAT SHE HAS NOTICED A SLIGHT DECLINE IN HIS MENTATION OVER THE YEARS. HE IS PLEASANT AND COOPERATIVE WITH CARE AND A 1-2 PERSON ASSIST. HE IS IN BED, CALL LIGHT WITHIN REACH, NO SIGNS OF SYMPTOMS OF DISTRESS. PLAN OF CARE ONGOING. SEE ASSESSMENT ON PATIENT FOR FURTHER DETAILS.
[2023-06-12 19:59] VITALS: BP 116/47
[2023-06-13 03:45] VITALS: BP 108/43
--- NOTE | 2023-06-13 04:48 | NUR ---
shift summary. shift has been mostly unremarkable. pt is aox3, pleasant, cooperative with care. no complaints of pain this shift. pt has slept through most of shift after 2100 med pass and shift assessment. has not complained of pain this shift. incontinent, no bm thus far this shift. has not used call light. is not impulsive thus far. able to make needs known. bed locked in lowest position. call light left within reach.
[2023-06-13 07:42] LABS: BASOPHILS ABSOLUTE AUTO 0.05 K/mm3 (0.00-0.23); BASOPHILS PERCENT AUTO 1 % (0-2); EOSINOPHILS ABSOLUTE AUTO 0.24 K/mm3 (0.00-0.68); EOSINOPHILS PERCENT AUTO 4 % (0-6); Hematocrit 32.2 % (37.0-53.0); Hemoglobin 10.3 g/dL (13.5-17.5); IMMATURE GRAN ABSOLUTE AUTO 0.03 K/mm3 (0.00-0.10); IMMATURE GRAN PERCENT AUTO 0 % (0-1); LYMPHOCYTES ABSOLUTE AUTO 1.97 K/mm3 (0.84-5.20); LYMPHOCYTES PERCENT AUTO 29 % (21-46); MONOCYTES ABSOLUTE AUTO 0.79 K/mm3 (0.16-1.47); MONOCYTES PERCENT AUTO 12 % (4-13); Mean Corpuscular HGB 30.6 pg (26.0-34.0); Mean Corpuscular Volume 96 fL (80-100); Mean Platelet Volume 10.7 fL (9.1-12.4); NEUTROPHILS ABSOLUTE AUTO 3.79 K/mm3 (1.96-9.15); NEUTROPHILS PERCENT AUTO 55 % (41-73); Platelet Count 234 K/mm3 (150-400); RDW Coefficient Variation 13.2 % (11.7-14.2); RDW Standard Deviation 46.5 fL (35.1-46.3); Red Blood Cell Count 3.37 M/mm3 (4.30-5.90); White Blood Cell Count 6.87 K/mm3 (4.00-11.30)
[2023-06-13 08:05] VITALS: BP 108/58
[2023-06-13 08:12] LABS: Albumin, Blood 2.2 g/dL (3.4-5.0); Anion Gap 6 mmol/L (6-16); Blood Urea Nitrogen 28 mg/dL (8-24); Bun/Creatinine Ratio 17.2 (12.0-20.0); CO2, Blood 21 mmol/L (21-32); Calcium, Blood 8.2 mg/dL (8.5-10.1); Chloride, Blood 108 mmol/L (98-108); Creatinine, Blood 1.63 mg/dL (0.60-1.20); Glomerular Filtration Rate 42 (60-); Glucose, Blood 211 mg/dL (70-99); Phosphorus, Blood 2.9 mg/dL (2.5-4.9); Potassium, Blood 4.3 mmol/L (3.5-5.5); Sodium, Blood 135 mmol/L (136-145)
--- NOTE | 2023-06-13 11:35 | NUR ---
DR. WU NOTIFIED OF LOW SODIUM OF 130. HE WAS ALSO NOTIFIED THAT PT AND HIS FAMILY STATE HE NO LONGER TAKES PROCARDIA AT HOME. PER DR. WU PROCARDIA WAS DC'D.
[2023-06-13 15:40] VITALS: BP 103/53
--- NOTE | 2023-06-13 16:03 | NUR ---
DNR STATUS CLARIFIED WITH PT. PT STATES HE WANTS TO BE DNR BUT IS HESITANT SINCE HIS FAMILY DOES NOT WISH FOR HIM TO BE A DNR. DR. WU NOTIFIED AND ARRIVED TO THE ROOM TO DISCUSED CODE STATUS WITH PT. AT THIS TIME PT WISHES TO BE A DNR WITHOUT THE BAND IN PLACE. PER DR. WU HE WILL FACILITATE A DISCUSSION WITH THE FAMILY.
--- NOTE | 2023-06-13 18:36 | NUR ---
SHIFT SUMMARY PT REMAINS IN THE HOSPITAL FOR ABX. PER DR. WU PLAN IS TO RECHECK LABS TOMORROW THEN POSSIBLY DC HOME WITH HOME HEALTH. PT HAS DENIED NEED FOR PAIN MEDICATION T/O THE DAY BUT HAS COMPLAINED OF BLE PAIN AND BACK PAIN. PT HAS WOUNDS TO BLE. WOUNDS CLEANSED AND DRESSED THIS EVENING PER ORDER. PT WAS A 1 PERSON ASSIST WHEN OOB, HE SAT UP TO THE CHAIR FOR LUNCH TODAY. FAMILY HAS BEEN PRESENT FOR SUPPORT. PT RESTING IN BED, CALL LIGHT WITHIN REACH.
[2023-06-13 20:01] VITALS: BP 112/55
[2023-06-14 03:36] VITALS: BP 118/56
--- NOTE | 2023-06-14 04:10 | NUR ---
SHIFT SUMMERY, PT RESTING IN BED, PT APPEARS TO BE COMFORTABLE. PT INCONT X 1 SO FAR THIS NIGHT. PT CALLS FOR NEEDS. PT SOME WHAT CONFUSED THINKING IT WAS DAY TIME AND WANTING TO MAKE A CALL BUT TRYING TO USE CALL LIGHT LIKE A PHONE, AT 0100 THIS AM. ONCE PT TOLD WHAT TIME HE DECIDED HE SHOULD WAIT. CALL LIGHT IN REACH BED ALARM ON.
[2023-06-14 05:29] LABS: BASOPHILS ABSOLUTE AUTO 0.03 K/mm3 (0.00-0.23); BASOPHILS PERCENT AUTO 0 % (0-2); EOSINOPHILS ABSOLUTE AUTO 0.19 K/mm3 (0.00-0.68); EOSINOPHILS PERCENT AUTO 3 % (0-6); Hemoglobin 10.1 g/dL (13.5-17.5); IMMATURE GRAN ABSOLUTE AUTO 0.04 K/mm3 (0.00-0.10); IMMATURE GRAN PERCENT AUTO 1 % (0-1); LYMPHOCYTES ABSOLUTE AUTO 1.77 K/mm3 (0.84-5.20); LYMPHOCYTES PERCENT AUTO 25 % (21-46); MONOCYTES ABSOLUTE AUTO 0.71 K/mm3 (0.16-1.47); MONOCYTES PERCENT AUTO 10 % (4-13); Mean Corpuscular HGB 30.7 pg (26.0-34.0); Mean Corpuscular HGB Conc 32.6 g/dL (31.5-36.5); Mean Corpuscular Volume 94 fL (80-100); Mean Platelet Volume 11.4 fL (9.1-12.4); NEUTROPHILS ABSOLUTE AUTO 4.48 K/mm3 (1.96-9.15); NEUTROPHILS PERCENT AUTO 62 % (41-73); Platelet Count 212 K/mm3 (150-400); RDW Coefficient Variation 13.1 % (11.7-14.2); RDW Standard Deviation 45.1 fL (35.1-46.3); Red Blood Cell Count 3.29 M/mm3 (4.30-5.90); White Blood Cell Count 7.22 K/mm3 (4.00-11.30)
[2023-06-14 05:46] LABS: Albumin, Blood 2.2 g/dL (3.4-5.0); Anion Gap 3 mmol/L (6-16); Blood Urea Nitrogen 20 mg/dL (8-24); Bun/Creatinine Ratio 13.1 (12.0-20.0); CO2, Blood 25 mmol/L (21-32); Calcium, Blood 8.4 mg/dL (8.5-10.1); Chloride, Blood 105 mmol/L (98-108); Creatinine, Blood 1.53 mg/dL (0.60-1.20); Glomerular Filtration Rate 45 (60-); Glucose, Blood 232 mg/dL (70-99); Magnesium, Blood 1.8 mg/dL (1.6-2.4); Phosphorus, Blood 2.9 mg/dL (2.5-4.9); Potassium, Blood 4.1 mmol/L (3.5-5.5); Sodium, Blood 133 mmol/L (136-145)
[2023-06-14 08:06] VITALS: BP 134/107
--- NOTE | 2023-06-14 11:37 | NUR ---
Case Conference Note Spoke with Primary RN Coral and discussed case. Family was at bedside and has left. Pt A&O and is own decision maker. Spoke with Dr Barnes and discussed case. Plan: Complete POLST with Pt when family is at bedside and gentle advanced care planning. Palliative Care will remain available
[2023-06-14] MEDS ORDERED: ACET325 PO (16:10)
[2023-06-14] MEDS ORDERED: AMOCLA875 PO (16:10)
[2023-06-14] MEDS ORDERED: VISBIOME 112.51 EACH PO (16:11)
--- NOTE | 2023-06-14 17:44 | NUR ---
DC HOME WITH WRITTEN & VERBAL DC INSTRUCTIONS GIVEN TO PT WITH FAMILY PRESENT, ALL VERBALIZED GOOD UNDERSTANDING. ALL CONCERNS & QUESTIONS ADDRESSED. PIV DC'D WITH CATH TIP INTACT, NO REDNESS OR SWELLING NOTED. NEW SCRIPTS FAXED TO PT'S REFERRED PHARM. PT TO PV VIA W/C WITH ALL PERSONAL BELONGINGS.
== END 2023-06-14 17:51 | disposition home health service (06) | DRG 689 ==
LOC: ER 17:11 → MEDS 17:12 → ENPENDDIS 06-14 12:35 → MEDS 06-14 17:51
PROVIDERS: Emergency Medicine; Family Medicine; Nurse Practitioner Acute Care; ADMIT Internal Medicine
DX: N39.0 Urinary tract infection, site not specified (principal); G93.41 Metabolic encephalopathy; J96.11 Chronic respiratory failure with hypoxia; N40.0 Benign prostatic hyperplasia without lower urinary tract symptoms; E78.5 Hyperlipidemia, unspecified; F03.90 Unspecified dementia, unspecified severity, without behavioral disturbance, psychotic disturbance, mood disturbance, and anxiety; Z66 Do not resuscitate; J44.9 Chronic obstructive pulmonary disease, unspecified; I12.9 Hypertensive chronic kidney disease with stage 1 through stage 4 chronic kidney disease, or unspecified chronic kidney disease; N18.30 Chronic kidney disease, stage 3 unspecified; E11.22 Type 2 diabetes mellitus with diabetic chronic kidney disease; E66.01 Morbid (severe) obesity due to excess calories; E86.0 Dehydration; D50.9 Iron deficiency anemia, unspecified; Z79.82 Long term (current) use of aspirin; Z79.84 Long term (current) use of oral hypoglycemic drugs; Z99.81 Dependence on supplemental oxygen; Z86.19 Personal history of other infectious and parasitic diseases; Z79.899 Other long term (current) drug therapy; Z98.890 Other specified postprocedural states; Z98.49 Cataract extraction status, unspecified eye; Z87.891 Personal history of nicotine dependence; Z79.02 Long term (current) use of antithrombotics/antiplatelets; Z68.35 Body mass index [BMI] 35.0-35.9, adult
CPT/HCPCS: 36415; 73630; 80048; 80053; 80069; 81001; 82947; 83735; 85025; 93005; 93010; 94760; 96365; 96372; 96374; 96376; 97110; 97116; 97162; 97530; 99285-25; A9270; G0378; J0696; J1644; J7030; J7040

== ENCOUNTER 2023-07-03 01:25 | Day surgery (SDC) | payer MEDICARE ==
[~2023-07-03 01:25] MED LIST changes: +ACET325 PO; +ADALAT CC30 M1 PO; +VISBIOME 112.51 EACH PO
== END 2023-07-03 23:29 | disposition home or self-care (01) ==
LOC: WOUND 01:25
DX: E11.621 Type 2 diabetes mellitus with foot ulcer (principal); L97.512 Non-pressure chronic ulcer of other part of right foot with fat layer exposed; E11.42 Type 2 diabetes mellitus with diabetic polyneuropathy; E11.51 Type 2 diabetes mellitus with diabetic peripheral angiopathy without gangrene; I87.2 Venous insufficiency (chronic) (peripheral); J44.9 Chronic obstructive pulmonary disease, unspecified; N18.4 Chronic kidney disease, stage 4 (severe); I13.10 Hypertensive heart and chronic kidney disease without heart failure, with stage 1 through stage 4 chronic kidney disease, or unspecified chronic kidney disease; E11.22 Type 2 diabetes mellitus with diabetic chronic kidney disease
CPT/HCPCS: G0463

== ENCOUNTER 2023-07-12 05:03 | Day surgery (SDC) | payer MEDICARE | END 2023-07-12 22:43 | disposition home or self-care (01) | LOC: WOUND 05:03 | DX: E11.621 Type 2 diabetes mellitus with foot ulcer (principal); L97.512 Non-pressure chronic ulcer of other part of right foot with fat layer exposed; E11.42 Type 2 diabetes mellitus with diabetic polyneuropathy; E11.51 Type 2 diabetes mellitus with diabetic peripheral angiopathy without gangrene; I87.2 Venous insufficiency (chronic) (peripheral); J44.9 Chronic obstructive pulmonary disease, unspecified; I51.9 Heart disease, unspecified; E11.22 Type 2 diabetes mellitus with diabetic chronic kidney disease; I12.9 Hypertensive chronic kidney disease with stage 1 through stage 4 chronic kidney disease, or unspecified chronic kidney disease; N18.4 Chronic kidney disease, stage 4 (severe) | CPT/HCPCS: G0463 ==

== ENCOUNTER 2023-07-16 14:40 | Observation (INO) | payer MEDICARE ==
[~2023-07-16] VITALS: Ht 188 cm; Wt 124.2 kg
[2023-07-16 15:13] LABS: Hemoglobin 11.5 g/dL (13.5-17.5); Mean Corpuscular HGB 30.5 pg (26.0-34.0); Mean Corpuscular HGB Conc 33.8 g/dL (31.5-36.5); Mean Corpuscular Volume 90 fL (80-100); Mean Platelet Volume 10.3 fL (9.1-12.4); Platelet Count 238 K/mm3 (150-400); RDW Coefficient Variation 13.2 % (11.7-14.2); RDW Standard Deviation 43.5 fL (35.1-46.3); Red Blood Cell Count 3.77 M/mm3 (4.30-5.90); White Blood Cell Count 11.28 K/mm3 (4.00-11.30)
[2023-07-16 15:34] LABS: Albumin, Blood 2.6 g/dL (3.4-5.0); Albumin/Globulin Ratio 0.4 (0.8-1.8); Bilirubin, Total 0.8 mg/dL (0.1-1.0); Bun/Creatinine Ratio 19.5 (12.0-20.0); Calcium, Blood 8.9 mg/dL (8.5-10.1); Creatinine, Blood 2.41 mg/dL (0.60-1.20); Globulin, Blood 6.3 g/dL (2.2-4.0); Potassium, Blood 3.7 mmol/L (3.5-5.5); Total Protein, Blood 8.9 g/dL (6.4-8.2)
[2023-07-16 15:38] LABS: Base Excess Venous -0.9 mmol/L; Bicarbonate Venous 23.4 mmol/L (24.0-30.0); pH Blood Venous 7.37 (7.34-7.37)
[2023-07-16 15:55] LABS: BAND PERCENT MAN 4 % (0-8); BASOPHILS ABSOLUTE MAN 0.11 K/mm3 (0.00-0.23); BASOPHILS PERCENT MAN 1 % (0-2); EOSINOPHILS ABSOLUTE MAN 0.22 K/mm3 (0.00-0.68); EOSINOPHILS PERCENT MAN 2 % (0-6); LYMPHOCYTES PERCENT MAN 16 % (21-46); MONOCYTES ABSOLUTE MAN 0.67 K/mm3 (0.16-1.47); MONOCYTES PERCENT MAN 6 % (4-13); NEUTROPHILS ABSOLUTE MAN 8.46 K/mm3 (1.96-9.15); SEG NEUTROPHILS PERCENT MAN 71 % (41-73); TOTAL CELLS COUNTED 100
[2023-07-16 18:03] LABS: Source, Urine Straight Cath
[2023-07-16 18:08] LABS: Appearance, Urine Turbid (Clear); Bilirubin, Urine Neg (Neg); Blood, Urine 5+ (Neg); Glucose Qualitative, Urine Neg (Neg); Ketones, Urine 1+ (Neg); Leukocyte Esterase, Urine 3+ (Neg); Nitrite, Urine Neg (Neg); Protein, Urine 3+ (Neg); Urobilinogen, Urine NORM (Normal)
[2023-07-16 18:15] LABS: Color, Urine Pale Yellow (P-Yellow)
[2023-07-16 18:17] LABS: Bacteria Many /hpf; Squamous Epithelial Cells Rare /hpf (Few); Transitional Epithelial Cells Rare /hpf (0-Rare); White Blood Cells, Urine TNTC /hpf (0-5)
[2023-07-16 18:53] LABS: Influenza A, PCR NEGATIVE (NEGATIVE); Influenza B, PCR NEGATIVE (NEGATIVE); Resp Syncytial Virus, PCR NEGATIVE (NEGATIVE); SARS-Cov-2 (COVID-19) PCR, MMC NEGATIVE (NEGATIVE)
[2023-07-16 21:15] VITALS: BP 107/91
--- NOTE | 2023-07-16 22:43 | NUR ---
PT ARRIVED ON UNIT AROUND ~2129. AOX2-3, PLEASANT, COOPERATIVE WITH CARE. BEDREST AT THIS TIME DUE TO WEAKNESS/DECONDITIONING. ADMITTED FOR UTI. INCONTINENT OF URINE. ABLE TO MAKE NEEDS KNOWN AND CALLS APPROPRIATELY THUS FAR. BED ALARM IN PLACE. FLUIDS RUNNING THROUGH PERIPHERAL IV WITHOUT DIFFICULTY. SOME PAIN WITH TURNING AND ADJUSTMENT BUT PT DENIES PAIN AT REST. SMALL PRESSURE SORE ON LEFT BUTTOCKS, PHOTO IN CHART. SATTING WELL ON 3 L O2 VIA NC WHICH IS HIS BASELINE. BED LOCKED IN LOWEST POSITION. CALL LIGHT LEFT WITHIN REACH.
--- NOTE | 2023-07-17 04:33 | NUR ---
SHIFT SUMMARY. SHIFT HAS BEEN MOSTLY UNREMARKABLE SINCE PT ARRIVED ON UNIT. PT REMAINS AOX2-3 BUT IS SOMEWHAT FORGETFUL. EASILY REORIENTED. PUREWICK HAS BEEN IN PLACE SINCE ANATOMY PROHIBITS USE OF CONDOM CATHETER AND PT IS FREQUENTLY INCONTIENT PUREWICK HAS BEEN WORKING WELL. NO COMPLAINTS OF PAIN THIS SHIFT OUTSIDE OF MILD PAIN ASSOCIATED WITH TURNING AND REPOSITIONING. NO PAIN AT REST. SATTING WELL ON 3 L O2 VIA NC. BEDREST AT THIS TIME. BED ALARM IN PLACE FOR SAFETY. BED LOCKED IN LOWEST POSITION. CALL LIGHT LEFT WITHIN REACH.
[2023-07-17 04:54] VITALS: BP 123/50
[2023-07-17 04:54] LABS: Hematocrit 30.2 % (37.0-53.0); Hemoglobin 10.1 g/dL (13.5-17.5); Mean Corpuscular HGB 30.3 pg (26.0-34.0); Mean Corpuscular HGB Conc 33.4 g/dL (31.5-36.5); Mean Corpuscular Volume 91 fL (80-100); Mean Platelet Volume 10.2 fL (9.1-12.4); Platelet Count 227 K/mm3 (150-400); RDW Coefficient Variation 13.3 % (11.7-14.2); Red Blood Cell Count 3.33 M/mm3 (4.30-5.90); White Blood Cell Count 9.96 K/mm3 (4.00-11.30)
[2023-07-17 05:48] LABS: BAND PERCENT MAN 2 % (0-8); BASOPHILS PERCENT MAN 0 % (0-2); EOSINOPHILS ABSOLUTE MAN 0.09 K/mm3 (0.00-0.68); EOSINOPHILS PERCENT MAN 1 % (0-6); LYMPHOCYTES ABSOLUTE MAN 0.59 K/mm3 (0.84-5.20); LYMPHOCYTES PERCENT MAN 6 % (21-46); MONOCYTES ABSOLUTE MAN 0.99 K/mm3 (0.16-1.47); MONOCYTES PERCENT MAN 10 % (4-13); NEUTROPHILS ABSOLUTE MAN 8.26 K/mm3 (1.96-9.15); SEG NEUTROPHILS PERCENT MAN 81 % (41-73); TOTAL CELLS COUNTED 100
[2023-07-17 05:56] LABS: Bun/Creatinine Ratio 19.8 (12.0-20.0); Calcium, Blood 8.8 mg/dL (8.5-10.1); Creatinine, Blood 2.07 mg/dL (0.60-1.20); Potassium, Blood 3.5 mmol/L (3.5-5.5)
[2023-07-17 07:53] VITALS: BP 112/51
--- NOTE | 2023-07-17 09:20 | NUR ---
ASSUMED CARE OF PT. PT DNR BUT REFUSES TO WEAR PURPLE DNR BRACELET STATING "I DO NOT WANT MY AND DAUGHTER TO KNOW". EDUCATED PT REGARDING NEED FOR BRACELET DURING TRANSFER AND THE RISKS OF REFUSING THE BRACELET.
--- NOTE | 2023-07-17 12:42 | NUR ---
WOUND CARE PT IS A MUTUAL PT OF WOUND CLINIC. KEEP BL GREAT TOES CLEAN AND DRY. PAINT DAILY WITH BETADINE. WOULD NOT RECOMMEND FURTHER DEBRIDEMENT UNTIL ARTERIAL STATUS HAS BEEN DETERMINED. KEEP BUTTOCKS CLEAN AND DRY, APPLY NICKEL THICK BARRIER CREAM TO STAGE 2 PI ON RIGHT GLUT DAILY, COVER BORDERED FOAM. WOULD RECOMMEND EGGCRATE AND Q2 TURNS.
[2023-07-17 15:51] VITALS: BP 121/69
--- NOTE | 2023-07-17 17:09 | NUR ---
PT A&O TO SELF, PEOPLE, PLACE, AND SITUATION. PT NOT WILLING TO GIVE DATE. VSS. WOUND CLINIC NURSE IN ROOM TO ASSESS AND TREAT WOUNDS PRESENT ON ADMISSION. NO ACUTE EVENTS DURING MY SHIFT. PT LEFT IN A POSITION OF SAFETY WITH BED LOCKED AND IN LOWEST POSITION, BED RAILS UP X2, ROOM CLEAR OF DEBRIS, BED ALARM ENABLED, AND CALL LIGHT WITHIN REACH.
[2023-07-17 19:38] VITALS: BP 119/53
[2023-07-17] MEDS ORDERED: POTA8 PO (23:18)
[2023-07-17] MEDS ORDERED: BUMETANIDE2 M6 PO (23:19)
[2023-07-18 02:09] VITALS: BP 102/55
--- NOTE | 2023-07-18 05:23 | NUR ---
SUMMARY PT RESTING QUIETLY IN BED, WAKES EASILY, PT HAS BEEN COOPERATIVE WITH CARE, MED PER EMAR THIS MORNING FOR PAIN, NO OTHER COMPLAINTS, VSS, WILL CONTINUE TO MONITOR
[2023-07-18 05:49] LABS: BASOPHILS ABSOLUTE AUTO 0.04 K/mm3 (0.00-0.23); BASOPHILS PERCENT AUTO 1 % (0-2); EOSINOPHILS ABSOLUTE AUTO 0.21 K/mm3 (0.00-0.68); EOSINOPHILS PERCENT AUTO 3 % (0-6); Hemoglobin 9.7 g/dL (13.5-17.5); IMMATURE GRAN ABSOLUTE AUTO 0.03 K/mm3 (0.00-0.10); IMMATURE GRAN PERCENT AUTO 0 % (0-1); LYMPHOCYTES PERCENT AUTO 24 % (21-46); MONOCYTES ABSOLUTE AUTO 0.82 K/mm3 (0.16-1.47); MONOCYTES PERCENT AUTO 10 % (4-13); Mean Corpuscular HGB 30.2 pg (26.0-34.0); Mean Corpuscular HGB Conc 32.3 g/dL (31.5-36.5); Mean Corpuscular Volume 94 fL (80-100); Mean Platelet Volume 9.8 fL (9.1-12.4); NEUTROPHILS ABSOLUTE AUTO 4.93 K/mm3 (1.96-9.15); NEUTROPHILS PERCENT AUTO 62 % (41-73); Platelet Count 247 K/mm3 (150-400); RDW Coefficient Variation 13.2 % (11.7-14.2); RDW Standard Deviation 45.4 fL (35.1-46.3); Red Blood Cell Count 3.21 M/mm3 (4.30-5.90); White Blood Cell Count 7.93 K/mm3 (4.00-11.30)
[2023-07-18 06:12] LABS: Albumin, Blood 1.9 g/dL (3.4-5.0); Albumin/Globulin Ratio 0.4 (0.8-1.8); Bilirubin, Total 0.5 mg/dL (0.1-1.0); Bun/Creatinine Ratio 16.9 (12.0-20.0); Calcium, Blood 8.6 mg/dL (8.5-10.1); Creatinine, Blood 1.72 mg/dL (0.60-1.20); Globulin, Blood 5.4 g/dL (2.2-4.0); Potassium, Blood 3.8 mmol/L (3.5-5.5); Total Protein, Blood 7.3 g/dL (6.4-8.2)
[2023-07-18 07:34] VITALS: BP 117/63
[2023-07-18 16:02] VITALS: BP 129/63
--- NOTE | 2023-07-18 16:20 | NUR ---
SHIFT SUMMARY PT A&O TO SELF, SITUATION, AND PLACE. PT CALLS APPROPRIAELY AND IS COOPERATIVE WITH CARE WITH SOME ENCOURAGEMENT. VSS. NO ACUTE EVENTS AT THIS TIME. PT SEEN BY PT AND TREATED. PT TO D/C HOME W/ HOME HEALTH PER DR OCASIO.
[2023-07-18] MEDS ORDERED: CIPR500 PO (17:08)
[2023-07-18] MEDS ORDERED: SITA50T2 PO (17:09)
--- NOTE | 2023-07-18 19:02 | NUR ---
PT D/C HOME VIA W/C TO CAR. ALL BELONGINGS OUT OF ROOM AND WITH PT. PT LEFT AT 1850. NO ACUTE EVENTS.
== END 2023-07-18 18:59 | disposition home health service (06) ==
LOC: ER 14:40 → MEDS 14:41
PROVIDERS: Emergency Medicine; Family Medicine; Nurse Practitioner Acute Care; Student in an Organized Health Care Education/Training Program; ADMIT Student in an Organized Health Care Education/Training Program
DX: N39.0 Urinary tract infection, site not specified (principal); B95.2 Enterococcus as the cause of diseases classified elsewhere; B96.89 Other specified bacterial agents as the cause of diseases classified elsewhere; G92.8 Other toxic encephalopathy; E11.621 Type 2 diabetes mellitus with foot ulcer; L97.528 Non-pressure chronic ulcer of other part of left foot with other specified severity; L97.518 Non-pressure chronic ulcer of other part of right foot with other specified severity; I12.9 Hypertensive chronic kidney disease with stage 1 through stage 4 chronic kidney disease, or unspecified chronic kidney disease; N18.4 Chronic kidney disease, stage 4 (severe); E11.22 Type 2 diabetes mellitus with diabetic chronic kidney disease; Z11.52 Encounter for screening for COVID-19; E66.01 Morbid (severe) obesity due to excess calories; E78.5 Hyperlipidemia, unspecified; N40.0 Benign prostatic hyperplasia without lower urinary tract symptoms; J44.9 Chronic obstructive pulmonary disease, unspecified; Z79.82 Long term (current) use of aspirin; Z79.899 Other long term (current) drug therapy; Z66 Do not resuscitate; Z87.891 Personal history of nicotine dependence; Z68.35 Body mass index [BMI] 35.0-35.9, adult
CPT/HCPCS: 0241U; 36415; 80048; 80053; 81001; 82803; 82947; 83036; 83605; 83735; 85025; 87077; 87086; 87186; 93005; 93010; 96361; 96365; 96372; 96376; 97110; 97162; 99285-25; A9270; G0378; J0696; J1644; J7030; J7040

== ENCOUNTER 2023-07-26 05:03 | Day surgery (SDC) | payer MEDICARE ==
[~2023-07-26 05:03] MED LIST changes: +BUMETANIDE2 M6 PO; +POTA8 PO; +SITA50T2 PO
== END 2023-07-26 22:53 | disposition home or self-care (01) ==
LOC: WOUND 05:03
DX: Z09 Encounter for follow-up examination after completed treatment for conditions other than malignant neoplasm (principal); Z86.31 Personal history of diabetic foot ulcer; J44.9 Chronic obstructive pulmonary disease, unspecified; N18.4 Chronic kidney disease, stage 4 (severe); E11.22 Type 2 diabetes mellitus with diabetic chronic kidney disease; I12.9 Hypertensive chronic kidney disease with stage 1 through stage 4 chronic kidney disease, or unspecified chronic kidney disease
CPT/HCPCS: G0463

== ENCOUNTER → 2023-08-28 | Outpatient (CLI) | payer MEDICARE ==
[2023-08-29 09:47] LABS: Source, Urine Clean Catch
[2023-08-29 10:05] LABS: Appearance, Urine Cloudy (Clear); Color, Urine Amber (P-Yellow); Glucose Qualitative, Urine Neg (Normal); Ketones, Urine Neg (Neg); Leukocyte Esterase, Urine 1+ (Neg); Nitrite, Urine Neg (Neg); Protein, Urine 3+ (Neg); Specific Gravity, Urine 1.015 (1.003-1.022); Urobilinogen, Urine NORM (Normal)
[2023-08-29 10:06] LABS: Bilirubin, Urine Neg (Neg); Blood, Urine 2+ (Neg)
[2023-08-29 13:17] LABS: Red Blood Cells, Urine TNTC /hpf (0-2)
[2023-08-29 13:18] LABS: Squamous Epithelial Cells Few /hpf (Few)
[2023-08-29 13:19] LABS: Bacteria Few /hpf
[2023-08-29 13:21] LABS: WBC Cast 0-2 /lpf (0)
== END ==
LOC: LAB 16:00 → LAB SHORT 16:00
PROVIDERS: Family Medicine
DX: R30.0 Dysuria (principal)
CPT/HCPCS: 81001; 87086

== ENCOUNTER 2023-10-07 16:36 | Inpatient (IN) | payer MEDICARE ==
[~2023-10-07] VITALS: Ht 182.9 cm; Wt 119.0 kg
[2023-10-07 20:10] LABS: BASOPHILS ABSOLUTE AUTO 0.05 K/mm3 (0.00-0.23); BASOPHILS PERCENT AUTO 1 % (0-2); EOSINOPHILS ABSOLUTE AUTO 0.27 K/mm3 (0.00-0.68); EOSINOPHILS PERCENT AUTO 3 % (0-6); Hematocrit 29.8 % (37.0-53.0); Hemoglobin 9.7 g/dL (13.5-17.5); IMMATURE GRAN ABSOLUTE AUTO 0.03 K/mm3 (0.00-0.10); IMMATURE GRAN PERCENT AUTO 0 % (0-1); LYMPHOCYTES ABSOLUTE AUTO 2.91 K/mm3 (0.84-5.20); LYMPHOCYTES PERCENT AUTO 34 % (21-46); MONOCYTES ABSOLUTE AUTO 0.79 K/mm3 (0.16-1.47); MONOCYTES PERCENT AUTO 9 % (4-13); Mean Corpuscular HGB 30.2 pg (26.0-34.0); Mean Corpuscular HGB Conc 32.6 g/dL (31.5-36.5); Mean Corpuscular Volume 93 fL (80-100); NEUTROPHILS ABSOLUTE AUTO 4.53 K/mm3 (1.96-9.15); NEUTROPHILS PERCENT AUTO 53 % (41-73); RDW Coefficient Variation 14.8 % (11.7-14.2); RDW Standard Deviation 51.2 fL (35.1-46.3); Red Blood Cell Count 3.21 M/mm3 (4.30-5.90); White Blood Cell Count 8.58 K/mm3 (4.00-11.30)
[2023-10-07 20:20] LABS: Albumin, Blood 3.1 g/dL (3.4-5.0); Albumin/Globulin Ratio 0.6 (0.8-1.8); Bilirubin, Total 0.3 mg/dL (0.1-1.0); Bun/Creatinine Ratio 19.5 (12.0-20.0); Calcium, Blood 8.9 mg/dL (8.5-10.1); Creatinine, Blood 2.51 mg/dL (0.60-1.20); Globulin, Blood 5.1 g/dL (2.2-4.0); Potassium, Blood 4.2 mmol/L (3.5-5.5); Total Protein, Blood 8.2 g/dL (6.4-8.2)
[2023-10-07 20:39] LABS: Mean Platelet Volume 11.2 fL (9.1-12.4); Platelet Count 176 K/mm3 (150-400)
[2023-10-07 21:37] LABS: Source, Urine Clean Catch
[2023-10-07 22:04] LABS: Bilirubin, Urine Neg (Neg); Blood, Urine 5+ (Neg); Glucose Qualitative, Urine Neg (Neg); Ketones, Urine 1+ (Neg); Leukocyte Esterase, Urine 1+ (Neg); Nitrite, Urine Neg (Neg); Protein, Urine 4+ (Neg); Specific Gravity, Urine 1.015 (1.003-1.022); Urobilinogen, Urine NORM (Normal); pH, Urine 6.5 (5.0-8.0)
[2023-10-07 22:27] LABS: Appearance, Urine Turbid (Clear); Color, Urine Red (P-Yellow)
[2023-10-07 22:28] LABS: Bacteria Rare /hpf; Red Blood Cells, Urine TNTC /hpf (0-2); Squamous Epithelial Cells Not Seen /hpf (Few)
[2023-10-08] VITALS (8 sets, daily range): BP systolic 107–139; BP diastolic 43–110
--- NOTE | 2023-10-08 05:52 | NUR ---
SHIFT SUMMARY PT ARRIVED TO UNIT AROUND 0300. HE IS ALERT AND ORIENTED X 4, HOWEVER HIS GRANDDAUGHTER WHO WAS WITH HIM WHEN HE ARRIVED TO UNIT, SAID HE IS CONFUSED AT TIMES. HE IS A POOR HISTORIAN, AND SHE SAID THAT SHE CAN PROVIDE HIS HISTORY NEEDED. SHE LEFT SHORTLY AFTER HE ARRIVED TO UNIT. HE TRANSFERRED FROM ER [facility] WITH SBA FROM NURSE AND TOLERATED WELL. HE IS ON 2L NC WHICH IS HIS BASELINE AND MAINTAINING 02 SATURATION ABOVE 92%, HE DENIES SOB. HIS HR IS SR AND IN THE 60'S, HE DENIES CHEST PAIN/PRESSURE/DIZZINESS. PT RECEIVING CONTINUOUS BLADDER IRRIGATION DUE TO HEMATURIA PER ORDERS. PT HAS SOME BLANCHABLE REDNESS ON HIS COCCYX. PT CURRENTLY RESTING IN BED WATCHING TV. CALL LIGHT WITHIN REACH.
[2023-10-08 06:18] LABS: BASOPHILS ABSOLUTE AUTO 0.04 K/mm3 (0.00-0.23); BASOPHILS PERCENT AUTO 1 % (0-2); EOSINOPHILS ABSOLUTE AUTO 0.23 K/mm3 (0.00-0.68); EOSINOPHILS PERCENT AUTO 3 % (0-6); Hematocrit 28.8 % (37.0-53.0); Hemoglobin 9.2 g/dL (13.5-17.5); IMMATURE GRAN ABSOLUTE AUTO 0.02 K/mm3 (0.00-0.10); IMMATURE GRAN PERCENT AUTO 0 % (0-1); LYMPHOCYTES ABSOLUTE AUTO 2.15 K/mm3 (0.84-5.20); LYMPHOCYTES PERCENT AUTO 30 % (21-46); MONOCYTES ABSOLUTE AUTO 0.88 K/mm3 (0.16-1.47); MONOCYTES PERCENT AUTO 12 % (4-13); Mean Corpuscular HGB 30.4 pg (26.0-34.0); Mean Corpuscular HGB Conc 31.9 g/dL (31.5-36.5); Mean Corpuscular Volume 95 fL (80-100); NEUTROPHILS ABSOLUTE AUTO 3.79 K/mm3 (1.96-9.15); NEUTROPHILS PERCENT AUTO 53 % (41-73); Platelet Count 207 K/mm3 (150-400); Red Blood Cell Count 3.03 M/mm3 (4.30-5.90); White Blood Cell Count 7.11 K/mm3 (4.00-11.30)
[2023-10-08 06:42] LABS: Albumin, Blood 2.6 g/dL (3.4-5.0); Albumin/Globulin Ratio 0.5 (0.8-1.8); Bilirubin, Total 0.4 mg/dL (0.1-1.0); Calcium, Blood 8.6 mg/dL (8.5-10.1); Creatinine, Blood 2.26 mg/dL (0.60-1.20); Potassium, Blood 4.2 mmol/L (3.5-5.5); Total Protein, Blood 7.6 g/dL (6.4-8.2)
[2023-10-08 08:27] LABS: Hematocrit 29.1 % (37.0-53.0); Hemoglobin 9.2 g/dL (13.5-17.5)
--- NOTE | 2023-10-08 13:15 | NUR ---
Spiritual care visit conducted. Patient is pleasant and has a witty sense of humor. We talk about his life, his career, his poor life choices and the really good choice he feels he made to is Billie. He talks about his family unit complications and the gratitude and love he has for his dtr. I focus on building therapeutic alliance and providing a calming and uplifting presence. Patient responded well and showed signs of an elevated mood. I will continue to remain available to patient and family.
[2023-10-08 16:24] LABS: Hematocrit 26.9 % (37.0-53.0); Hemoglobin 8.5 g/dL (13.5-17.5)
--- NOTE | 2023-10-08 18:05 | NUR ---
SHIFT SUMMARY; ASSUMED CARE AT 0700. A/A/OX3 WITH INTERMITANT CONFUSION. PLEASANT AND COOPERATIVE WITH CARE. [address] WITH CONTINUOUS IRRIGATION. DRAINAGE RED WITH OUT SIGNS OF CLEARING, SEDIMENT AND SMALL CLOTS NOTED. MOVES SELF ON GURNEY WITH MINIMAL ASSISTANCE. FAMILY AT BEDSIDE DURING SHIFT. VSS, NO ACUTE CHANGES, WILL CONTINUE TO MONITOR AND TREAT UNTIL CHANGE OF SHIFT.
[2023-10-09 00:41] LABS: Hematocrit 27.4 % (37.0-53.0); Hemoglobin 8.6 g/dL (13.5-17.5)
[2023-10-09 03:21] VITALS: BP 122/55
[2023-10-09 05:39] LABS: BASOPHILS ABSOLUTE AUTO 0.06 K/mm3 (0.00-0.23); BASOPHILS PERCENT AUTO 1 % (0-2); EOSINOPHILS ABSOLUTE AUTO 0.26 K/mm3 (0.00-0.68); EOSINOPHILS PERCENT AUTO 3 % (0-6); Hematocrit 27.9 % (37.0-53.0); Hemoglobin 8.6 g/dL (13.5-17.5); IMMATURE GRAN ABSOLUTE AUTO 0.02 K/mm3 (0.00-0.10); IMMATURE GRAN PERCENT AUTO 0 % (0-1); LYMPHOCYTES ABSOLUTE AUTO 2.61 K/mm3 (0.84-5.20); LYMPHOCYTES PERCENT AUTO 32 % (21-46); MONOCYTES ABSOLUTE AUTO 0.91 K/mm3 (0.16-1.47); MONOCYTES PERCENT AUTO 11 % (4-13); Mean Corpuscular HGB 29.8 pg (26.0-34.0); Mean Corpuscular HGB Conc 30.8 g/dL (31.5-36.5); Mean Corpuscular Volume 97 fL (80-100); Mean Platelet Volume 10.1 fL (9.1-12.4); NEUTROPHILS ABSOLUTE AUTO 4.19 K/mm3 (1.96-9.15); NEUTROPHILS PERCENT AUTO 52 % (41-73); Platelet Count 207 K/mm3 (150-400); RDW Coefficient Variation 15.1 % (11.7-14.2); RDW Standard Deviation 53.6 fL (35.1-46.3); Red Blood Cell Count 2.89 M/mm3 (4.30-5.90); White Blood Cell Count 8.05 K/mm3 (4.00-11.30)
--- NOTE | 2023-10-09 05:48 | NUR ---
SHIFT SUMMARY PT ALERT AND ORIENTED X 4 BUT CONFUSED AT TIMES. HE IS COOPERATIVE WITH CARE AND ABLE TO MAKE NEEDS KNOWN. CALLS APPROPRIATELY. PERRLA. HE IS ON 2L NC WHICH IS HIS BASELINE AND MAINTAINING 02 SATURATION ABOVE 92%, HE HAS DENIED SOB ALL SHIFT. HIS HR SR 70'S AND HAS DENIED CHEST PAIN/PRESSURE/DIZZINESS ALL SHIFT. HE HAS NOT HAD A BOWEL MOVEMENT THIS SHIFT BUT HE HAS PASSED GAS. [address] WITH CBI PER ORDER, PATENT, AND DRAINING INTERMITTENT RED AND PINK FLUID/URINE. NS RUNNING VIA L WRIST IV PER EMAR. PT CURRENTLY SLEEPING IN BED, SYMMETRICAL RISE AND FALL OF CHEST, RR 16, 02 SATURATION ABOVE 92%. CALL LIGHT WITHIN REACH.
[2023-10-09 06:43] LABS: Bun/Creatinine Ratio 17.4 (12.0-20.0); Calcium, Blood 8.9 mg/dL (8.5-10.1); Creatinine, Blood 1.67 mg/dL (0.60-1.20); Potassium, Blood 4.9 mmol/L (3.5-5.5)
[2023-10-09 07:39] VITALS: BP 120/53
--- NOTE | 2023-10-09 12:02 | NUR ---
CATHETER IRRIGATION CATHETER HAS REQUIRED MANUAL IRRIGATION X3 SINCE START OF SHIFT AT 0700 D/T BLOOD CLOTS OBSTUCTING CATHETER. CLOTS REMOVED DURING IRRIGATION. CATHETER DRAINING TO GRAVITY ADEQUATELY AT THIS TIME.
[2023-10-09 12:11] VITALS: BP 122/59
[2023-10-09 16:43] VITALS: BP 135/72
--- NOTE | 2023-10-09 18:21 | NUR ---
SHIFT SUMMARY PT AOX4 OBEYS COMMANDS AND ANSWER QUESTIONS APPROPRIATELY. PT DENIES CHEST PAIN/PRESSURE. VSS. SPO2>92% ON 2 L. PT WITH CONTINUOUS BLADDER IRRIGATION THROUGH GIANG CATHETER DRAING RED TO PINK OUTPUT, PT TOLERATED WELL. GIANG MANUALLY IRRIGATED X4 THROUGHOUT SHIFT D/T BLOOD CLOTS IN CATHETER. GIANG SECURED AND DRAINING TO GRAVITY. SCDS IN PLACED BILAT LE. NO ACUTE CHANGES.
[2023-10-09 19:22] VITALS: BP 123/62
[2023-10-09 22:56] VITALS: BP 145/71
[2023-10-10 03:02] VITALS: BP 109/59
--- NOTE | 2023-10-10 04:28 | NUR ---
EOS: PATIENT IS ONLY IMPROVING, STILL DENIES CHEST PAIN PRESSURE OR SOB AT REST. PATIENT Q2 REPOSITIONS, CONTINUOUS BLADDER IRRIGATION IN PROCESS, LIGHTENING RED URINE TO NOW YELLOW WITH OCC RED TINGE. PATIENT IS COOPERATIVE, PLEASANT WITH CARE. SCDS WERE ON FOR 75% OF THE SHIFT. INFUSING 125 NS STILL PLEASE SEE I&O. NO CONCERNS FROM THIS RN AT THIS TIME.
[2023-10-10 05:28] LABS: BASOPHILS ABSOLUTE AUTO 0.05 K/mm3 (0.00-0.23); BASOPHILS PERCENT AUTO 1 % (0-2); EOSINOPHILS ABSOLUTE AUTO 0.31 K/mm3 (0.00-0.68); EOSINOPHILS PERCENT AUTO 4 % (0-6); Hematocrit 25.1 % (37.0-53.0); Hemoglobin 7.9 g/dL (13.5-17.5); IMMATURE GRAN ABSOLUTE AUTO 0.02 K/mm3 (0.00-0.10); IMMATURE GRAN PERCENT AUTO 0 % (0-1); LYMPHOCYTES ABSOLUTE AUTO 2.34 K/mm3 (0.84-5.20); LYMPHOCYTES PERCENT AUTO 30 % (21-46); MONOCYTES ABSOLUTE AUTO 0.85 K/mm3 (0.16-1.47); MONOCYTES PERCENT AUTO 11 % (4-13); Mean Corpuscular HGB 29.8 pg (26.0-34.0); Mean Corpuscular HGB Conc 31.5 g/dL (31.5-36.5); Mean Corpuscular Volume 95 fL (80-100); Mean Platelet Volume 10.3 fL (9.1-12.4); NEUTROPHILS ABSOLUTE AUTO 4.28 K/mm3 (1.96-9.15); NEUTROPHILS PERCENT AUTO 55 % (41-73); Platelet Count 187 K/mm3 (150-400); RDW Coefficient Variation 15.1 % (11.7-14.2); RDW Standard Deviation 52.4 fL (35.1-46.3); Red Blood Cell Count 2.65 M/mm3 (4.30-5.90); White Blood Cell Count 7.85 K/mm3 (4.00-11.30)
[2023-10-10 06:08] LABS: Bun/Creatinine Ratio 14.2 (12.0-20.0); Calcium, Blood 8.3 mg/dL (8.5-10.1); Creatinine, Blood 1.34 mg/dL (0.60-1.20); Potassium, Blood 4.1 mmol/L (3.5-5.5)
[2023-10-10 07:30] VITALS: BP 107/77
--- NOTE | 2023-10-10 14:34 | NUR ---
WOUND CARE NO PRESSURE INJURY NOTED. GROIN DOES APPEAR TO HAVE A YEAST RASH. WOULD APPLY MICONAZOLE POWDER BID
[2023-10-10 14:47] LABS: Source, Urine Foley catheter
[2023-10-10 15:02] LABS: Appearance, Urine Hazy (Clear); Bilirubin, Urine Neg (Neg); Blood, Urine 5+ (Neg); Glucose Qualitative, Urine Neg (Neg); Ketones, Urine Neg (Neg); Leukocyte Esterase, Urine 3+ (Neg); Nitrite, Urine Neg (Neg); Protein, Urine 2+ (Neg); Specific Gravity, Urine 1.015 (1.003-1.022); Urobilinogen, Urine NORM (Normal)
[2023-10-10 15:38] LABS: Color, Urine Pale Yellow (P-Yellow)
[2023-10-10 15:40] LABS: Bacteria Many /hpf; Squamous Epithelial Cells Rare /hpf (Few); White Blood Cells, Urine 25-50 /hpf (0-5)
[2023-10-10 15:41] LABS: Red Blood Cells, Urine TNTC /hpf (0-2); Renal Epithelial Few /hpf (0-Rare)
[2023-10-10 16:30] VITALS: BP 130/58
--- NOTE | 2023-10-10 17:24 | NUR ---
SHIFT SUMMARY PT AOX4. VSS. CONTINUOUS BLADDER IRRIGATION D/C DUE TO URINE CLARIITY AND PT CATHETER DRAINING ADEQUEATE BUT WAS RESTARTED D/T BLOOD CLOTS NOTED IN CATHTER TUBING AND URINE SAMPLE PER . PT OBEYS COMMMANDS AND COMMUNITCATES NEEDS EFFECTIVELY. PT STATUS CHANGE TO MEDICAL NO TELE PER . NO ACUTE CHANGES.
[2023-10-10 19:45] VITALS: BP 127/60
[2023-10-10 19:50] LABS: Hematocrit 25.3 % (37.0-53.0); Hemoglobin 8.1 g/dL (13.5-17.5)
[2023-10-10 20:32] VITALS: BP 127/60
[2023-10-11 00:14] VITALS: BP 117/64
--- NOTE | 2023-10-11 02:50 | NUR ---
TRANSFER NOTE: REPORT CALLED TO PARVEEN MARTINEZ AT [facility]; MEDICAL TRANSPORT ASSUMED CARE OF PT AT APPROX 0205. PT ALERT, ORIENTED AT TIME OF TRANSFER. VSS. SPO2 >90% ON 2L VIA NC. NS INFUSING AT 125 ML/HR PER EMAR. CONTINUOUS BLADDER IRRIGATION IN PLACE. URINE OUTPUT YELLOW W/ CLOTS PRESENT. GRANDDAUGHTER AT BEDSIDE, TOOK ALL PT BELONGINGS W/ HER TO TRANSPORT PRIVATELY TO [facility].
== END 2023-10-11 02:05 | disposition short-term general hospital (02) | DRG 690 ==
LOC: ER 16:36 → PCU 10-08 02:53
PROVIDERS: Family Medicine; Internal Medicine; Physician Assistant; Student in an Organized Health Care Education/Training Program; ADMIT Student in an Organized Health Care Education/Training Program
PROC: 0T9B70Z Drainage of Bladder with Drainage Device, Via Natural or Artificial Opening (ICD-10-PCS; principal; 2023-10-08)
DX: N30.91 Cystitis, unspecified with hematuria (principal); N17.9 Acute kidney failure, unspecified; J96.11 Chronic respiratory failure with hypoxia; D62 Acute posthemorrhagic anemia; R33.9 Retention of urine, unspecified; E11.22 Type 2 diabetes mellitus with diabetic chronic kidney disease; J44.9 Chronic obstructive pulmonary disease, unspecified; D63.1 Anemia in chronic kidney disease; Z66 Do not resuscitate; N47.1 Phimosis; E66.01 Morbid (severe) obesity due to excess calories; N18.32 Chronic kidney disease, stage 3b; N40.1 Benign prostatic hyperplasia with lower urinary tract symptoms; I71.9 Aortic aneurysm of unspecified site, without rupture; E78.5 Hyperlipidemia, unspecified; I12.9 Hypertensive chronic kidney disease with stage 1 through stage 4 chronic kidney disease, or unspecified chronic kidney disease; Z98.49 Cataract extraction status, unspecified eye; Z87.891 Personal history of nicotine dependence; Z98.890 Other specified postprocedural states; Z86.19 Personal history of other infectious and parasitic diseases; Z79.82 Long term (current) use of aspirin; Z79.899 Other long term (current) drug therapy; Z68.37 Body mass index [BMI] 37.0-37.9, adult
CPT/HCPCS: 36415; 51700; 51702; 51703; 76775; 80048; 80053; 81001; 82947; 85014; 85018; 85025; 87086; 94762; 96374-59; 96375-59; 96376-59; 99284-25; A9270; J1956; J3010; J7030

== ENCOUNTER 2024-07-10 04:42 | Observation (INO) | payer MEDICARE ==
[2024-07-10] VITALS (7 sets, daily range): BP systolic 49–87; BP diastolic 34–60
[~2024-07-10] VITALS: Ht 188 cm; Wt 104.3 kg
[~2024-07-10 04:42] MED LIST changes: +Naloxone HCl 0.4MG / ML 1ML Vial ONE
[2024-07-10] MEDS ORDERED: NS 1,000 ML IV SCH ×2 (05:05→06:00)
[2024-07-10] MEDS ORDERED: CefTRIAXone Sodium 1,000 MG in NS 50 ML IV ONE (05:10)
[2024-07-10 05:28] LABS: BASOPHILS ABSOLUTE AUTO 0.03 K/mm3 (0.00-0.23); BASOPHILS PERCENT AUTO 0 % (0-2); EOSINOPHILS PERCENT AUTO 0 % (0-6); Hematocrit 39.3 % (37.0-53.0); Hemoglobin 11.8 g/dL (13.5-17.5); IMMATURE GRAN ABSOLUTE AUTO 0.11 K/mm3 (0.00-0.10); IMMATURE GRAN PERCENT AUTO 1 % (0-1); LYMPHOCYTES ABSOLUTE AUTO 0.95 K/mm3 (0.84-5.20); LYMPHOCYTES PERCENT AUTO 6 % (21-46); MONOCYTES ABSOLUTE AUTO 0.92 K/mm3 (0.16-1.47); MONOCYTES PERCENT AUTO 6 % (4-13); Mean Corpuscular HGB 27.2 pg (26.0-34.0); Mean Corpuscular Volume 91 fL (80-100); Mean Platelet Volume 9.6 fL (9.1-12.4); NEUTROPHILS ABSOLUTE AUTO 13.11 K/mm3 (1.96-9.15); NEUTROPHILS PERCENT AUTO 87 % (41-73); Platelet Count 218 K/mm3 (150-400); RDW Coefficient Variation 16.3 % (11.7-14.2); Red Blood Cell Count 4.34 M/mm3 (4.30-5.90); White Blood Cell Count 15.12 K/mm3 (4.00-11.30)
[2024-07-10] MEDS ORDERED: Vancomycin HCL 2,000 MG in NS 500 ML IV ONE (05:50)
[2024-07-10 05:57] LABS: Magnesium, Blood 1.7 mg/dL (1.6-2.4); Thyroid Stimulating Hormone 4.9 uIU/mL (0.360-4.800)
[2024-07-10 05:58] LABS: Albumin, Blood 2.1 g/dL (3.4-5.0); Albumin/Globulin Ratio 0.3 (0.8-1.8); Bilirubin, Total 1.1 mg/dL (0.1-1.0); Bun/Creatinine Ratio 18.5 (12.0-20.0); Creatinine, Blood 2.97 mg/dL (0.60-1.20); Phosphorus, Blood 3.9 mg/dL (2.5-4.9); Potassium, Blood 3.3 mmol/L (3.5-5.5); Total Protein, Blood 9.1 g/dL (6.4-8.2)
[2024-07-10] MEDS ORDERED: Diltiazem HCl 5 MG / ML 5ML Vial IV ONE (06:10)
[2024-07-10] MEDS ORDERED: Acetaminophen 650 MG Supp PR ONE ×2 (06:15)
[2024-07-10] MEDS ORDERED: Dexamethasone Sod Phos 10 MG/ML 1ML VIAL IV ONE (07:05)
[2024-07-10] MEDS ORDERED: BUME2 PO (08:03)
[2024-07-10] MEDS ORDERED: FOLI1 PO (08:04)
[2024-07-10] MEDS ORDERED: GABA100 PO (08:04)
[2024-07-10] MEDS ORDERED: TAMSULOSIN HCL0.4 M1 PO (08:05)
[2024-07-10] MEDS ORDERED: POTA8 PO (08:05)
[2024-07-10] MEDS ORDERED: IPRAT-ALBUT 0.5-3 ML INH (08:05)
[2024-07-10] MEDS ORDERED: NS 1,000 ML IV ONE ×2 (09:28→09:30)
[2024-07-10] MEDS ORDERED: Hydrocortisone Sod Succinate 100 MG Vial IV ONE (09:30)
--- NOTE | 2024-07-10 11:14 | NUR ---
Spiritual care visit conducted. Patient moments before I entered the patient's room. Family are gathered in the room and grieving appropriately. I conducted a brief life review, provided prayer and gave Billie a list of homes. Family show signs of being comforted.
--- NOTE | 2024-07-10 11:25 | NUR ---
SUMMARY PT ADMITTED TO ICU 16 AT 0855. PT IS UNRESPONSIVE ON BIPAP 20/12 FIO2 100%. MOTTLED OVER KNEES, HANDS, AND ABD. CARDIZEM GTT WAS STOPPED ON ARRIVAL TO ROOM PT WAS SEVERELY HYPOTENSIVE. DR. CARRINGTON TO THE ROOM AND DR. TAYLOR CONSULTED. HYDROCORTISONE IV GIVEN, BOLUS STARTED, AND LEVOPHED STARTED PERIPHERALLY AT MAX DOSE FOR PERIPHERAL. NO URINE OUTPUT SINCE GIANG WAS PLACED IN THE ER. HAS SKIN BREAKDOWN TO BUTTOCKS, PHOTOS TAKEN, AND DR. TAYLOR MADE AWARE. PT STARTED CO[place]ILA BREATHING AT 0955. FAMILY WAS NOTIFIED OF ARRIVAL TO ICU AND MADE THEIR WAY TO THE BEDSIDE QUICKLY. DR. TAYLOR SPOKE WITH FAMILY ABOUT WISHES. DR. TAYLOR IS SPEAKING WITH THE FAMILY PT STARTED TO SHARMILA DOWN AND PASSED AT 1033 DESPITE PRESSOR AND BIPAP. SEE FLOWSHEET AND VS.
--- NOTE | 2024-07-10 12:51 | NUR ---
RECIEVED A CALL FROM ICU REGARDING BEE. HE WAS NOT DOING WELL, AND THEY WERE REQUESTING CLARIFICATION ABOUT PATIENTS CODE STATUS. DISCUSSED WITH PC TEAM. POLST REGISTRY WAS CALLED. COPY OF THE POLST OBTAINED AND REFLECTED DNR AND LIMITED. PROVIDER AT BEDSIDE AND RELAYED POOR PROGNOSIS TO FAMILY. FAMILY AGREED TO TRANSITION TO COMFORT CARE. PATIENT CONTINUED TO DECLINE AND PASSED WITH FAMILY AT BEDSIDE.
== END 2024-07-10 12:31 ==
LOC: ER 04:42 → ERHOLD 04:43 → ICUE 04:43
PROVIDERS: Emergency Medicine; ADMIT Internal Medicine
DX: A41.9 Sepsis, unspecified organism (principal); R65.21 Severe sepsis with septic shock; U07.1 COVID-19; J96.11 Chronic respiratory failure with hypoxia; J44.9 Chronic obstructive pulmonary disease, unspecified; E86.0 Dehydration; I48.91 Unspecified atrial fibrillation; I25.10 Atherosclerotic heart disease of native coronary artery without angina pectoris; K74.60 Unspecified cirrhosis of liver; I12.9 Hypertensive chronic kidney disease with stage 1 through stage 4 chronic kidney disease, or unspecified chronic kidney disease; E11.22 Type 2 diabetes mellitus with diabetic chronic kidney disease; N18.30 Chronic kidney disease, stage 3 unspecified; E11.42 Type 2 diabetes mellitus with diabetic polyneuropathy; G92.8 Other toxic encephalopathy; N17.9 Acute kidney failure, unspecified; J18.9 Pneumonia, unspecified organism; F03.90 Unspecified dementia, unspecified severity, without behavioral disturbance, psychotic disturbance, mood disturbance, and anxiety; E78.5 Hyperlipidemia, unspecified; Z66 Do not resuscitate; Z79.899 Other long term (current) drug therapy; Z79.4 Long term (current) use of insulin; Z87.891 Personal history of nicotine dependence; Z95.5 Presence of coronary angioplasty implant and graft; Z99.81 Dependence on supplemental oxygen; Z79.82 Long term (current) use of aspirin; Z51.5 Encounter for palliative care
CPT/HCPCS: 51702; 71045; 80053; 83605; 83690; 83735; 84100; 84443; 84484; 85025; 87040; 87077; 87147; 87186; 93005; 93010; 94660; 96361; 96365; 96366; 96368; 96375; 99285-25; A9270; G0378; J0696; J1100; J1720; J2310; J3370; J7030; J7040; J7060